=== PATIENT | male | born 1950 | race Caucasian/White ===

== ENCOUNTER 2017-03-21 10:07 | Emergency (ER) | payer OTHER ==
--- NOTE | 2017-03-21 10:14 | EDPHY ---
H & P Time Seen by Provider: 03/21/17 10:08 HPI/ROS: CHIEF COMPLAINT: I blacked out from my knees up HISTORY OF PRESENT ILLNESS: 67-year-old man arrives by EMS saying that he blacked out from the knees up 3 times last night. The patient says his legs get weak and he would fall down. He really denies syncope or and consciousness or any injury to me. REVIEW OF SYSTEMS: Eye: no change in vision ENT: no sore throat Cardiac: no chest pain or syncope Pulmonary: no cough or SOB Abdomen: no vomiting, diarrhea, abdominal pain Musculoskeletal: no back pain Skin: no rash Neuro: no headache Constitutional: no fever : no urinary symptoms A comprehensive 10 point review of systems is otherwise negative aside from elements mentioned in the history of present illness. PAST MEDICAL HISTORY: History and physical dated 07/18/2015 personally reviewed includes COPD, spine surgery, bipolar Social history: Tobacco smoker, no alcohol General Appearance: Alert and conversant, cooperative. Eyes: No scleral icterus. ENT, Mouth: Normal mucous membranes. Respiratory: Normal respiratory effort, breath sounds equal, lungs are clear to auscultation. Cardiovascular: Regular rate and rhythm. Gastrointestinal: Abdomen is soft and non tender. Neurological: Alert and oriented x3. Normally conversant. Face symmetric, normal movement and sensation in all extremities. Skin: Warm and dry, no rashes. Musculoskeletal: No peripheral edema and no joint swelling. Psychiatric: Not agitated. Emergency Department course/MDM: 12-lead EKG interpreted by me; official reading is in trace master. My interpretation is sinus rhythm rate 94 with normal intervals and no ischemic changes. I-STAT labs reviewed. Patient is ambulatory, in further discussion with him he really was just calling EMS because he felt cold being outside. I think it is unlikely that he has stroke or seizure, malignant dysrhythmia, syncope or head injury. Smoking Status: Current every day smoker Constitutional: Initial Vital Signs Temperature (C) 36.8 C 03/21/17 10:11 Heart Rate 103 H 03/21/17 10:11 Respiratory Rate 16 03/21/17 10:11 Blood Pressure 144/88 H 03/21/17 10:11 O2 Sat (%) 93 03/21/17 10:11 O2 Delivery Mode Room Air Allergies/Adverse Reactions: No Known Allergies Allergy (Verified 07/08/15 19:53) Home Medications: Medication Instructions Recorded LORazepam [Ativan (*)] 1 mg PO HS PRN 07/18/15 OXYCODONE HCL 30 mg PO BID PRN 07/18/15 Ipratropium [Atrovent Hfa] 12.9 gm IH QID #1 mdi 07/22/15 levOFLOXACIN [levAQUIN (*)] 750 mg PO DAILY10 #2 tab 07/22/15 oxyCODONE IR [Oxycodone Ir (*)] 10 mg PO Q4 PRN #24 tab 07/22/15 Medical Decision Making - Data Points Laboratory Results: 03/21/17 10:23 POC Hgb 14.6 gm/dL gm/dL (13.7-17.5) POC Hct 43 % % (40-51) POC Sodium 144 mEq/L mEq/L (134-144) POC Potassium 3.9 mEq/L mEq/L (3.3-5.0) POC Chloride 105 mEq/L mEq/L (97-110) POC BUN 27 mg/dL H mg/dL (7-23) POC Creatinine 1.5 mg/dL H mg/dL (0.7-1.3) POC Glucose 95 mg/dL mg/dL (70-100) Point of Care Test Results: 03/21/17 10:23 POC Sodium 144 POC Potassium 3.9 POC Chloride 105 POC BUN 27 H POC Creatinine 1.5 H POC Glucose 95 Departure - Departure Disposition: Home, Routine, Self-Care Clinical Impression: Weakness Condition: Good Instructions: Weakness (ED) Referrals: Patient,NotPresent [Unknown] - As per Instructions [facility],. [Clinic] - As per Instructions
--- NOTE | 2017-03-21 10:39 | CPEKG ---
Heart Rate: 94 RR Interval: 638 P-R Interval: 124 QRSD Interval: 96 QT Interval: 368 QTC Interval: 461 P [place]: 71 QRS [place]: -14 T Wave [place]: 79 EKG Severity - NORMAL ECG - EKG Impression: SINUS RHYTHM Electronically Signed By: Rashard Santo 21-Mar-2017 15:00:57
--- NOTE | 2017-03-21 10:39 | CPEKG ---
Heart Rate: 94 RR Interval: 638 P-R Interval: 124 QRSD Interval: 96 QT Interval: 368 QTC Interval: 461 P [place]: 71 QRS [place]: -14 T Wave [place]: 79 EKG Severity - NORMAL ECG - EKG Impression: SINUS RHYTHM Electronically Signed By: Rashard Santo 21-Mar-2017 15:00:57
[2017-03-21 11:30] VITALS: BP 127/97; PULSE 92; RESP 12; TEMP 97.7; O2SAT 95
== END 2017-03-21 11:50 | disposition home or self-care (01) ==
LOC: EDUNIT#
DX: R53.1 Weakness (principal); J44.9 Chronic obstructive pulmonary disease, unspecified; F17.200 Nicotine dependence, unspecified, uncomplicated
CPT/HCPCS: 82947-QW

== ENCOUNTER 2017-05-15 13:52 | Emergency (ER) | payer OTHER ==
[2017-05-15 14:10] VITALS: RESP 18
--- NOTE | 2017-05-15 14:57 | EDPHY ---
H & P Time Seen by Provider: 05/15/17 14:35 HPI/ROS: Chief complaint. Shortness of breath HPI. Patient is a 67-year-old male presents emergency department with vomiting and diarrhea for 2 days. He is also have increasing shortness of breath and cough and has been out of his albuterol inhaler for 2-3 days. He notes nonproductive cough some tightness. No fever. He attributes his vomiting and diarrhea to bad food. He has had similar symptoms previously ROS Constitutional. no fever/chills, no weakness Eyes. no problems with vision ENT. no sore throat, no nasal drainage Cardiovascular. no chest pain Respiratory. Shortness of breath and cough Abdominal. No abdominal pain but vomiting and diarrhea . no problems urinating MS. no calf pain/swelling, no neck/back pain, no joint pain Skin. no rash Lymph. no swollen glands Neuro. no headache, no dizziness, no difficulty walking or with speech Past Medical/Surgical History: Past medical history COPD, hypertension, chronic neck pain Social History: Single, daily smoker, no alcohol Smoking Status: Current every day smoker Physical Exam: General Appearance: Alert well-developed male mild distress vital signs are stable. Eyes: Pupils equal and round no pallor or injection. ENT, Mouth: Mucous membranes are moist. Respiratory: No retractions but inspiratory expiratory rhonchi Cardiovascular: Regular rate and rhythm. Gastrointestinal: Abdomen is soft and nontender, no masses, bowel sounds normal. Neurological: Awake and alert, sensory and motor exams grossly normal. Skin: Warm and dry, no rashes. Musculoskeletal: Neck is supple nontender. Extremities symmetrical, full range of motion. Psychiatric: Patient is oriented X 3, there is no agitation. Constitutional: Initial Vital Signs Temperature (C) 36.5 C 05/15/17 14:03 Heart Rate 84 05/15/17 14:03 Respiratory Rate 18 05/15/17 14:03 Blood Pressure 132/103 H 05/15/17 14:03 O2 Sat (%) 94 05/15/17 14:03 O2 Delivery Mode Room Air Allergies/Adverse Reactions: No Known Allergies Allergy (Verified 05/15/17 14:02) Home Medications: Medication Instructions Recorded NK [No Known Home Meds] 05/15/17 Medical Decision Making - Diagnostics Imaging Results: Chest x-ray interpreted by me as showing COPD but no evidence for pneumonia Procedures: IV normal saline with initial target 2 L. Her loperamide orally. Zofran IV. DuoNeb updraft. ED Course/Re-evaluation: Re-evaluation at 5:30 p.m. patient is taking oral fluids without nausea or vomiting. After the DuoNeb updraft he has better air movement and decreased rhonchi. Patient and I discussed imaging study results, treatment plan including criteria for return and importance of follow-up and further evaluation. He expresses understanding and agreement Differential Diagnosis: Likely this is a gastroenteritis causing vomiting and diarrhea. There is no evidence for acute abdomen. Patient has a history of COPD and chest x-ray confirms COPD. There is no evidence for pneumonia. - Data Points Medications Given: Discontinued Medications Albuterol/Ipratropium (Duoneb) 3 ml IH EDNOW ONE Stop: 05/15/17 16:08 Last Admin: 05/15/17 16:33 Dose: 3 ml Sodium Chloride (Ns) 1,000 mls @ 0 mls/hr IV ONCE ONE; Wide Open PRN Reason: Protocol Stop: 05/15/17 16:08 Last Admin: 05/15/17 16:31 Dose: 1,000 mls Sodium Chloride (Ns) 1,000 mls @ 0 mls/hr IV EDNOW ONE; Wide Open PRN Reason: Protocol Stop: 05/15/17 16:08 Last Admin: 05/15/17 16:40 Dose: 1,000 mls Loperamide HCl (Imodium) 4 mg PO EDNOW ONE Stop: 05/15/17 16:09 Last Admin: 05/15/17 16:33 Dose: Not Given Methylprednisolone Sodium Succinate (Solu-Medrol) 125 mg IVP EDNOW ONE Stop: 05/15/17 16:08 Last Admin: 05/15/17 16:31 Dose: 125 mg Ondansetron HCl (Zofran) 4 mg IVP EDNOW ONE Stop: 05/15/17 16:08 Last Admin: 05/15/17 16:32 Dose: 4 mg Departure - Departure Disposition: Home, Routine, Self-Care Clinical Impression: COPD exacerbation, Gastroenteritis Condition: Good Instructions: COPD (Chronic Obstructive Pulmonary Disease) (ED) Additional Instructions: Use the inhaler that we have given you using 2 puffs every 4-6 hours for breathing. For nausea and vomiting frequent, small sips fluids with gradual diet advancement. Zofran if needed for nausea and vomiting. Return for worsening symptoms. Recheck in 1-2 days for continuing symptoms Referrals: NONE *PRIMARY CARE P,. [Primary Care Provider] - As per Instructions [facility] [Outside] - 2-3 days, if not improved
[2017-05-15] MEDS ORDERED: IPRATROPIUM/ALBUTEROL 3 ML DEYVIAL IH ONE (16:07)
[2017-05-15] MEDS ORDERED: methylPREDNISolone SOD SUCC 125 MG/2 ML VIAL IVP ONE (16:07)
[2017-05-15] MEDS ORDERED: ONDANSETRON 4 MG/2 ML VIAL IVP ONE (16:07)
[2017-05-15] MEDS ORDERED: NS 1,000 ML IV ONE ×2 (16:07)
[2017-05-15] MEDS ORDERED: LOPERAMIDE HCL 2 MG CAP PO ONE (16:08)
[2017-05-15] MEDS ORDERED: ALBUTEROL INH PREPACK MDI TAKEHOME ONE (17:16)
[2017-05-15] MEDS ORDERED: ONDANSETRON 4MG PREPACK#2 BTL TAKEHOME ONE (17:42)
[2017-05-15 17:43] VITALS: BP 145/90; PULSE 90; TEMP 98.6; O2SAT 97
== END 2017-05-15 17:50 | disposition home or self-care (01) ==
DX: J44.1 Chronic obstructive pulmonary disease with (acute) exacerbation (principal); K52.9 Noninfective gastroenteritis and colitis, unspecified; E86.9 Volume depletion, unspecified; I10 Essential (primary) hypertension; F17.200 Nicotine dependence, unspecified, uncomplicated
CPT/HCPCS: 71010; 96361; 96374; 96375; 99284; J2405; J2930

== ENCOUNTER 2017-06-07 12:26 | Emergency (ER) | payer OTHER ==
[~2017-06-07 12:26] MED LIST: OSELTAMIVIR PHOSPHATE 75 MG CAP PO SCH; predniSONE 20 MG TAB PO SCH
[2017-06-07] MEDS ORDERED: methylPREDNISolone SOD SUCC 125 MG/2 ML VIAL IVP ONE (13:41)
[2017-06-07] MEDS ORDERED: ALBUTEROL 3 ML DEYVIAL ONE (13:41)
[2017-06-07] MEDS ORDERED: IPRATROPIUM/ALBUTEROL 3 ML DEYVIAL IH ONE (13:41)
[2017-06-07] MEDS ORDERED: IPRATROPIUM/ALBUTEROL 3 ML DEYVIAL ONE (13:41)
[2017-06-07] MEDS ORDERED: ALBUTEROL 3 ML DEYVIAL IH ONE ×2 (13:41→15:06)
[2017-06-07 13:46] LABS: PLATELET COUNT 377 10^3/uL (150-400)
--- NOTE | 2017-06-07 13:56 | CPEKG ---
Heart Rate: 78 RR Interval: 769 P-R Interval: 132 QRSD Interval: 98 QT Interval: 388 QTC Interval: 442 P [place]: 75 QRS [place]: 20 T Wave [place]: 74 EKG Severity - NORMAL ECG - EKG Impression: SINUS RHYTHM Electronically Signed By: Nela Diaz 07-Jun-2017 20:00:42
--- NOTE | 2017-06-07 14:11 | EDPHY ---
H & P Stated Complaint: COUGHING, PHLEM YELLOW Time Seen by Provider: 06/07/17 13:18 HPI/ROS: CHIEF COMPLAINT: Cough with yellow phlegm, shortness of breath, out of medications HISTORY OF PRESENT ILLNESS: 67-year-old gentleman with a history of COPD and hypertension, currently homeless, presents complaining of 2 days of shortness of breath, cough productive of a yellowish sputum, and chest tightness. Patient reports that he does not have any his usual medications which include Ventolin, steroid inhaler, Symbicort. Patient denies any fevers. Denies palpitations. No nausea or vomiting or diarrhea. No headache or lightheadedness. REVIEW OF SYSTEMS: Aside from elements discussed in the HPI, a comprehensive 10-point review of systems was reviewed and is negative. PAST MEDICAL HISTORY: COPD, hypertension SOCIAL HISTORY: The patient continues to smoke. VITAL SIGNS Reviewed by me. GENERAL: Well-developed, well-nourished, resting comfortably in no respiratory distress. HEENT: Atraumatic. Eyes: No icterus, no injection. Mouth: moist mucous membranes. No erythema or lesions. Neck: supple with no adenopathy. LUNGS: Coarse breath sounds with wheezes throughout. CARDIAC: Regular rate and rhythm, no rubs, murmurs or gallops. ABDOMEN: Soft, nontender, nondistended, bowel sounds normal. BACK: No CVA tenderness. EXTREMITIES: No trauma. No edema. Range of motion is normal throughout. NEURO: Alert and oriented, grossly nonfocal. SKIN: Warm and dry, no rash. PSYCHIATRIC: Normal mentation, no agitation. - Personal History Current Tetanus Diphtheria and Acellular Pertussis (TDAP): No Tetanus Vaccine Date: < 10 years - Medical/Surgical History Hx Asthma: Yes Hx Chronic Respiratory Disease: Yes Hx Diabetes: No Hx Cardiac Disease: No Hx Renal Disease: No Hx Cirrhosis: No Hx Alcoholism: No Hx HIV/AIDS: No Hx Splenectomy or Spleen Trauma: No Other PMH: Emphysema, hypertension, Chronic neck pain, previous cervical fusion , lumbar fusion, KNEE, HEP B AND C - Social History Smoking Status: Current every day smoker Constitutional: Initial Vital Signs Temperature (C) 36.5 C 06/07/17 12:29 Heart Rate 88 06/07/17 12:29 Respiratory Rate 22 H 06/07/17 12:29 Blood Pressure 150/91 H 06/07/17 12:29 O2 Sat (%) 97 06/07/17 12:29 O2 Delivery Mode Room Air Allergies/Adverse Reactions: No Known Allergies Allergy (Verified 05/15/17 14:02) Home Medications: Medication Instructions Recorded Albuterol Hfa Anes Only [Proair 2 puffs IH QID #1 mdi 06/07/17 Hfa Icu (*)] Budesonide/Formoterol 80/4.5 2 puffs IH BID #1 mdi 06/07/17 [Symbicort 80-4.5 Mcg Inhaler] Oseltamivir Phosphate [Tamiflu 75 75 mg PO BID #10 cap 06/07/17 mg (*)] Oxycodone HCl 06/07/17 predniSONE [prednisone 10mg (RX)] 40 mg PO DAILY 3 Days tab 06/07/17 Medical Decision Making - Diagnostics EKG Interpretation: 12-LEAD EKG: Please see the full report in Trace Master. My interpretation: Sinus rhythm, no ST or T-wave changes Imaging Results: Imaging Impressions Chest X-Ray 06/07/17 13:41 Impression: Hyperexpanded lungs suggesting COPD/emphysema. Imaging: I viewed and interpreted images myself ED Course/Re-evaluation: 67-year-old male with COPD presenting with shortness of breath, yellow cough, and also reports that he is out of his meds. He received a DuoNeb as well as an albuterol neb. He received Solu-Medrol 125 mg in his IV. Evaluation included chest x-ray consistent with bronchitis, no pneumonia. EKG with normal sinus rhythm, negative troponin, normal labs with the exception of positive influenza A. On re-examination patient's wheezes have largely cleared. He does have some residual right-sided wheezes. An additional nebulizer treatment was ordered. Patient's dose of Tamiflu was administered emergency department. Case Management facilitated providing the patient with Tamiflu for the next 5 days, prednisone 40 mg daily for the next 3 days, and meter dose inhaler. Patient will need to follow up with his primary care physician. He understands the significance of an influenza diagnosis in a patient with underlying COPD. He understands importance of rest, fluids, fever control, aggressive use of his meter dose inhaler and follow up as needed. He will return if he is worse. Differential Diagnosis: Differential diagnosis for the patient's cough and shortness breath was considered including but not limited to viral versus bacterial bronchitis, influenza, cardiac causes, COPD, pulmonary emboli, upper respiratory infection, lower respiratory infection, and bronchospasm. - Data Points Laboratory Results: Laboratory Results 06/07/17 13:10 06/07/17 13:10 06/07/17 06/07/17 06/07/17 14:00 13:10 13:10 WBC 9.43 10^3/uL 10^3/uL (3.80-9.50) RBC 4.30 10^6/uL L 10^6/uL (4.40-6.38) Hgb 12.4 g/dL L g/dL (13.7-17.5) Hct 37.9 % L % (40.0-51.0) MCV 88.1 fL fL (81.5-99.8) MCH 28.8 pg pg (27.9-34.1) MCHC 32.7 g/dL g/dL (32.4-36.7) RDW 13.5 % % (11.5-15.2) Plt Count 377 10^3/uL 10^3/uL (150-400) MPV 9.8 fL fL (8.7-11.7) Neut % (Auto) 65.7 % % (39.3-74.2) Lymph % (Auto) 22.0 % % (15.0-45.0) [place] % (Auto) 9.1 % % (4.5-13.0) Eos % (Auto) 2.0 % % (0.6-7.6) Baso % (Auto) 0.6 % % (0.3-1.7) Nucleat RBC Rel Count 0.0 % % (0.0-0.2) Absolute Neuts (auto) 6.19 10^3/uL 10^3/uL (1.70-6.50) Absolute Lymphs (auto) 2.07 10^3/uL 10^3/uL (1.00-3.00) Absolute Monos (auto) 0.86 10^3/uL H 10^3/uL (0.30-0.80) Absolute Eos (auto) 0.19 10^3/uL 10^3/uL (0.03-0.40) Absolute Basos (auto) 0.06 10^3/uL 10^3/uL (0.02-0.10) Absolute Nucleated RBC 0.00 10^3/uL 10^3/uL (0-0.01) Immature Gran % 0.6 % % (0.0-1.1) Immature Gran # 0.06 10^3/uL 10^3/uL (0.00-0.10) Sodium 142 mEq/L mEq/L (135-145) Potassium 4.9 mEq/L mEq/L (3.5-5.2) Chloride 103 mEq/L mEq/L (97-110) Carbon Dioxide 26 mEq/l mEq/l (22-31) Anion Gap 13 mEq/L mEq/L (8-16) BUN 23 mg/dL mg/dL (7-23) Creatinine 0.9 mg/dL mg/dL (0.7-1.3) Estimated GFR > 60 Glucose 103 mg/dL H mg/dL (70-100) Calcium 9.6 mg/dL mg/dL (8.5-10.4) Troponin I < 0.012 ng/mL ng/mL (0.000-0.034) Nasal Influenza A PCR FLU A DETECTED (NEGATIVE) Nasal Influenza B PCR NEGATIVE FOR FLU B (NEGATIVE) Medications Given: Discontinued Medications Albuterol (Proventil Neb) 3 ml IH EDNOW ONE Stop: 06/07/17 13:42 Last Admin: 06/07/17 13:43 Dose: 3 ml Albuterol (Proventil Neb) 3 ml IH EDNOW ONE Stop: 06/07/17 15:07 Last Admin: 06/07/17 15:20 Dose: 3 ml Albuterol/Ipratropium (Duoneb) 3 ml IH EDNOW ONE Stop: 06/07/17 13:42 Last Admin: 06/07/17 13:43 Dose: 3 ml Sodium Chloride (Ns) 1,000 mls @ 0 mls/hr IV ONCE ONE; Wide Open PRN Reason: Protocol Stop: 06/07/17 15:07 Last Admin: 06/07/17 15:20 Dose: 1,000 mls Methylprednisolone Sodium Succinate (Solu-Medrol) 125 mg IVP EDNOW ONE Stop: 06/07/17 13:42 Last Admin: 06/07/17 13:44 Dose: 125 mg Oseltamivir Phosphate (Tamiflu) 75 mg PO EDNOW ONE Stop: 06/07/17 14:50 Last Admin: 06/07/17 14:55 Dose: 75 mg Departure - Departure Disposition: Home, Routine, Self-Care Clinical Impression: Influenza A, Chronic obstructive pulmonary disease with acute exacerbation Condition: Fair Instructions: Albuterol (By breathing), Influenza (ED), COPD (Chronic Obstructive Pulmonary Disease) (ED) Additional Instructions: Most important thing to treat your influenza days to get plenty of rest, drink plenty of fluid, and treat any fever with Tylenol or ibuprofen. You been given a prescription for Tamiflu. Please take this as directed. You been given a meter dose albuterol inhaler. Please use this as needed for shortness of breath. 2-4 puffs every 3-4 hours as needed. Please take the prednisone as directed. Please follow up with primary care physician as soon as possible for further evaluation. Return to the emergency department or seek care urgently if you are not improving or if you're getting significantly worse. Referrals: AUBREY BOBO [Primary Care Provider] - As per Instructions Prescriptions: Albuterol Hfa Anes Only [Proair Hfa Icu (*)] 2 puffs IH QID #1 mdi Budesonide/Formoterol 80/4.5 [Symbicort 80-4.5 Mcg Inhaler] 2 puffs IH BID #1 mdi Oseltamivir Phosphate [Tamiflu 75 mg (*)] 75 mg PO BID #10 cap predniSONE [prednisone 10mg (RX)] 40 mg PO DAILY 3 Days tab
[2017-06-07] MEDS ORDERED: OSELTAMIVIR PHOSPHATE 75 MG CAP PO ONE (14:49)
[2017-06-07] MEDS ORDERED: NS 1,000 ML IV ONE (15:06)
[2017-06-07] MEDS ORDERED: ALBUTEROL INH PREPACK MDI TAKEHOME ONE (15:39)
[2017-06-07 16:20] VITALS: BP 151/82; PULSE 89; RESP 18; TEMP 97.9; O2SAT 98
--- NOTE | 2017-06-07 16:21 | ASMTCMCOM ---
CM Note CM Note Notes: Patient presents to the ER with flu like symptoms/positive for Infuenza A. Patient staes that he is currently homeless and requesting assistance with medications. I have met with patient to provide resources, including to evalauate for medication MAP. Patient reports that he is "recently" homeless, has been staying with a friend, but is looking into getting his TB screeening so he can stay at the half-way. I have confirmed that patient is current with Nick Benitez MD and suggested he follow up with Dr. Benitez re getting this done. He states that he is planning to go to [facility] for this and that he has already looked into it I have called patient's reported pharmacy; [facility] [address] and confirmed that patient recently filled [address] Benitez (kurtz) on May 24: Oxycodone, Lisinopril, and a Z-pack. Pharmacist states that they do not have any prescription insurance information on file. Patient also tells me that he does not have Medicare D. We have "mapped" his Tamiflu and prednisone prescriptions I have provided patient with information regarding the [facility] program and [facility] for the half-way. He is aware that the [facility]-way is NOT open this evening and I encouraged him to stay with his friend amadou if he is able Date Signed: 06/07/2017 04:20 PM Electronically Signed By:Nicolette Terrazas RN
== END 2017-06-07 16:24 | disposition home or self-care (01) ==
DX: J44.1 Chronic obstructive pulmonary disease with (acute) exacerbation (principal); J10.1 Influenza due to other identified influenza virus with other respiratory manifestations; I10 Essential (primary) hypertension; F17.200 Nicotine dependence, unspecified, uncomplicated
CPT/HCPCS: 71046; 93005; 96374; 99285; J2930; J7613; J7512

== ENCOUNTER 2017-07-06 12:32 | Emergency (ER) | payer OTHER ==
[~2017-07-06 12:32] MED LIST changes: -OSELTAMIVIR PHOSPHATE 75 MG CAP PO SCH
[2017-07-06 12:40] VITALS: BP 149/86; PULSE 85; RESP 18; TEMP 97.9
--- NOTE | 2017-07-06 12:45 | CPEKG ---
Heart Rate: 77 RR Interval: 779 P-R Interval: 140 QRSD Interval: 96 QT Interval: 404 QTC Interval: 458 P [place]: 72 QRS [place]: 4 T Wave [place]: 65 EKG Severity - NORMAL ECG - EKG Impression: SINUS RHYTHM Electronically Signed By: Chuck Chau 06-Jul-2017 12:53:53
--- NOTE | 2017-07-06 12:50 | EDPHY ---
H & P Stated Complaint: cough, chest pain Time Seen by Provider: 07/06/17 12:49 HPI/ROS: CHIEF COMPLAINT: Cough, dyspnea HISTORY OF PRESENT ILLNESS: Patient presents to the ED with complaints of cough and dyspnea. The patient does have a history of COPD. He reports he has been using his albuterol frequently. The patient denies any fever, abdominal pain, vomiting or diarrhea. The patient denies any history of fall or trauma. The patient denies asymmetric calf pain or swelling. The patient has no additional complaints. REVIEW OF SYSTEMS: A comprehensive 10 point review of systems is otherwise negative aside from elements mentioned in the history of present illness. Source: Patient - Personal History Current Tetanus/Diphtheria Vaccine: Yes Current Tetanus Diphtheria and Acellular Pertussis (TDAP): Yes Tetanus Vaccine Date: < 10 years - Medical/Surgical History Hx Asthma: Yes Hx Chronic Respiratory Disease: Yes Hx Diabetes: No Hx Cardiac Disease: No Hx Renal Disease: No Hx Cirrhosis: No Hx Alcoholism: No Hx HIV/AIDS: No Hx Splenectomy or Spleen Trauma: No Other PMH: Emphysema, hypertension, Chronic neck pain, previous cervical fusion , lumbar fusion, KNEE, HEP B AND C - Social History Smoking Status: Current every day smoker - Physical Exam Exam: General Appearance: Alert, no distress Eyes: Pupils equal and round no pallor or injection ENT, Mouth: Mucous membranes moist Respiratory: There are no retractions, diminished breath sounds bilaterally, scant wheezing, no tachypnea Cardiovascular: Regular rate and rhythm Gastrointestinal: Abdomen is soft and nontender, no masses, bowel sounds normal Neurological: A&O, normal motor function, normal sensory exam, normal cranial nerves Skin: Warm and dry, no rashes Musculoskeletal: Neck is supple nontender Extremities: symmetrical, full range of motion Constitutional: Initial Vital Signs Temperature (C) 36.6 C 07/06/17 12:38 Heart Rate 85 07/06/17 12:38 Respiratory Rate 18 07/06/17 12:38 Blood Pressure 149/86 H 07/06/17 12:38 O2 Sat (%) 95 07/06/17 12:38 O2 Delivery Mode Room Air Allergies/Adverse Reactions: No Known Allergies Allergy (Verified 05/15/17 14:02) Home Medications: Medication Instructions Recorded Albuterol Hfa Anes Only [Proair 2 puffs IH QID #1 mdi 06/07/17 Hfa Icu (*)] Oxycodone HCl 06/07/17 Lisinopril 07/06/17 predniSONE [prednisone 20mg (RX)] 3 tab PO DAILY #15 tab 07/06/17 Medical Decision Making - Diagnostics EKG Interpretation: EKG: Complete interpretation has been separately recorded in the [employer] archive. Summary impression: Sinus rhythm, rate 77 Imaging Results: Chest x-ray AP: Images reviewed by myself, negative for acute pneumonia, chronic changes are noted consistent with his COPD. ED Course/Re-evaluation: ED course: The patient presents to the ED with dyspnea mild chest pain. His chest x-ray demonstrates no evidence of pneumonia. I reviewed his past medical records including his prior ED visits for COPD exacerbations. His EKG demonstrates no evidence of ischemia. His vital signs are stable. The patient does have a current prescription for his inhalers. He will be given a short course of prednisone. The patient will be advised to return to the emergency department for any worsening symptoms or other concerns. He will follow up with his primary care provider as scheduled. The patient is not hypoxemic. I reexamined him at 2:00 p.m. and he is comfortable being discharged home. She did receive an albuterol updraft in the emergency department. Differential Diagnosis: Differential diagnosis considered includes asthma, bronchitis, pneumonia - Data Points Laboratory Results: Laboratory Results 07/06/17 12:35 07/06/17 12:35 07/06/17 07/06/17 12:35 12:35 WBC 8.63 10^3/uL 10^3/uL (3.80-9.50) RBC 4.33 10^6/uL L 10^6/uL (4.40-6.38) Hgb 12.3 g/dL L g/dL (13.7-17.5) Hct 37.6 % L % (40.0-51.0) MCV 86.8 fL fL (81.5-99.8) MCH 28.4 pg pg (27.9-34.1) MCHC 32.7 g/dL g/dL (32.4-36.7) RDW 14.3 % % (11.5-15.2) Plt Count 326 10^3/uL 10^3/uL (150-400) MPV 9.6 fL fL (8.7-11.7) Neut % (Auto) 57.0 % % (39.3-74.2) Lymph % (Auto) 27.0 % % (15.0-45.0) [place] % (Auto) 9.7 % % (4.5-13.0) Eos % (Auto) 4.6 % % (0.6-7.6) Baso % (Auto) 1.0 % % (0.3-1.7) Nucleat RBC Rel Count 0.0 % % (0.0-0.2) Absolute Neuts (auto) 4.91 10^3/uL 10^3/uL (1.70-6.50) Absolute Lymphs (auto) 2.33 10^3/uL 10^3/uL (1.00-3.00) Absolute Monos (auto) 0.84 10^3/uL H 10^3/uL (0.30-0.80) Absolute Eos (auto) 0.40 10^3/uL 10^3/uL (0.03-0.40) Absolute Basos (auto) 0.09 10^3/uL 10^3/uL (0.02-0.10) Absolute Nucleated RBC 0.00 10^3/uL 10^3/uL (0-0.01) Immature Gran % 0.7 % % (0.0-1.1) Immature Gran # 0.06 10^3/uL 10^3/uL (0.00-0.10) Sodium 140 mEq/L mEq/L (135-145) Potassium 4.5 mEq/L mEq/L (3.5-5.2) Chloride 102 mEq/L mEq/L (97-110) Carbon Dioxide 26 mEq/l mEq/l (22-31) Anion Gap 12 mEq/L mEq/L (8-16) BUN 21 mg/dL mg/dL (7-23) Creatinine 0.8 mg/dL mg/dL (0.7-1.3) Estimated GFR > 60 Glucose 146 mg/dL H mg/dL (70-100) Calcium 9.5 mg/dL mg/dL (8.5-10.4) Troponin I < 0.012 ng/mL ng/mL (0.000-0.034) Departure - Departure Disposition: Home, Routine, Self-Care Clinical Impression: COPD exacerbation Condition: Good Instructions: COPD (Chronic Obstructive Pulmonary Disease) (ED) Additional Instructions: 1. Continue your regular medications as prescribed. 2. Take prednisone as directed for next 5 days. 3. [facility] the week. 4. Please return to the ED for markedly worsening symptoms or other concerns. Referrals: [facility],. [Clinic] - As per Instructions Prescriptions: predniSONE [prednisone 20mg (RX)] 3 tab PO DAILY #15 tab
[2017-07-06 13:21] LABS: PLATELET COUNT 326 10^3/uL (150-400)
[2017-07-06] MEDS ORDERED: predniSONE 20 MG TAB PO ONE (13:50)
[2017-07-06 13:51] VITALS: O2SAT 95
[2017-07-06] MEDS ORDERED: IPRATROPIUM/ALBUTEROL 3 ML DEYVIAL IH ONE (13:52)
--- NOTE | 2017-07-06 14:36 | ASMTCMCOM ---
CM Note CM Note Notes: Met with patient who is known to this CM regarding follow up from last ER visit (see CM note from 06/07/17). Patient tells me that he is now staying with a friend but is not sure how long he will be able to do so. I reminded him of the Coordinated Entry Program and have provided him detailed information. Patient is asking to have his prescription for prednisone filled because he "does not have any money". Patricia (patient advocate-[employer]) has screened patient for Medicaid and he is "over income" for benefits. Patient does have Medicare as well as prescription drug coverage. We have MAPPED his prescription today for Prednisone and I have informed patient that he will need to fill his own prescriptions in the future. His pharmacy is [facility] on [address]. Patient verbalizes understanding. Patient's PCP is Dr. Nick Benitez and I have again LM with Dr. Benitez re care coordination and follow up Date Signed: 07/06/2017 02:35 PM Electronically Signed By:Nicolette Terrazas RN
== END 2017-07-06 14:50 | disposition home or self-care (01) ==
LOC: EDUNIT#
DX: J44.1 Chronic obstructive pulmonary disease with (acute) exacerbation (principal); I10 Essential (primary) hypertension; F17.200 Nicotine dependence, unspecified, uncomplicated
CPT/HCPCS: J7512

== ENCOUNTER 2017-07-23 08:10 | Emergency (ER) | payer OTHER ==
[2017-07-23 08:22] VITALS: TEMP 97.5
[2017-07-23] MEDS ORDERED: ONDANSETRON 4 MG/2 ML VIAL IVP ONE (08:29)
[2017-07-23] MEDS ORDERED: NS 1,000 ML IV ONE (08:29)
--- NOTE | 2017-07-23 08:37 | CPEKG ---
Heart Rate: 82 RR Interval: 732 P-R Interval: 128 QRSD Interval: 100 QT Interval: 388 QTC Interval: 453 P Edna: 72 QRS Edna: 50 T Wave Edna: 71 EKG Severity - NORMAL ECG - EKG Impression: SINUS RHYTHM Electronically Signed By: Chuck Chau 23-Jul-2017 13:56:52
[2017-07-23 09:16] LABS: PLATELET COUNT 317 10^3/uL (150-400)
--- NOTE | 2017-07-23 09:47 | EDPHY ---
H & P Stated Complaint: nausea Time Seen by Provider: 07/23/17 08:20 HPI/ROS: CHIEF COMPLAINT: "I'm nauseous" HISTORY OF PRESENT ILLNESS: 67-year-old male took a taxi to the ER from the senior care complaining of nausea since last night. No abdominal pain. No vomiting. No chest pain or discomfort. No dyspnea. No back or flank pain. No change in urine output. No dizziness. No diaphoresis. REVIEW OF SYSTEMS: A ten point review of systems was performed and is negative with the exception of the items mentioned in the HPI PAST MEDICAL & SURGICAL HISTORY: COPD, hepatitis-B and C, bipolar disorder SOCIAL HISTORY: Homeless, daily smoker PHYSICAL EXAM (Prior to examination, patient consented to physical exam, hands were washed and my usual and customary physical exam procedures followed) 1) GENERAL: Well-developed, well-nourished, alert and oriented. Appears to be in no acute distress. Sleeping, easily woken 2) HEAD: Normocephalic, atraumatic 3) HEENT: Pupils equal, round, reactive to light bilaterally. Sclera anicteric. Nasopharynx, oropharynx, clear, no lesions. Moist mucous membranes Ears bilaterally with normal tympanic membranes. 4) NECK: Full range of motion, no meningeal signs. 5) LUNGS: Clear auscultation bilaterally, no wheezes, no rhonchi, no retractions. 6) HEART: Regular rate and rhythm, no murmur, no heave, no gallop. 7) ABDOMEN: No guarding, no rebound, no focal tenderness, negative McBurney's, negative Villanueva's, negative Rovsing's, negative peritoneal sign, I am unable to elicit any abdominal pain on exam 8) MUSCULOSKELETAL: Moving all extremities, no focal areas of tenderness, no obvious trauma. No peripheral edema or discoloration.Negative Homans no palpable cord 9) BACK: No CVA tenderness, no midline vertebral tenderness, no fluctuance, no step-off, no obvious trauma, no visual or palpable abnormality. 10) SKIN: No rash, no petechiae. 11) Psychiatric: Patient is oriented X 3, there is no agitation. DIFFERENTIAL DIAGNOSIS: In no particular order including but not limited to acute CT, acute pancreatitis, acute gastroenteritis, acute gastritis, aortic dissection - Personal History Current Tetanus/Diphtheria Vaccine: Yes Tetanus Vaccine Date: < 10 years - Medical/Surgical History Hx Asthma: Yes Hx Chronic Respiratory Disease: Yes Hx Diabetes: No Hx Cardiac Disease: No Hx Renal Disease: No Hx Cirrhosis: No Hx Alcoholism: No Hx HIV/AIDS: No Hx Splenectomy or Spleen Trauma: No Other PMH: Emphysema, hypertension, Chronic neck pain, previous cervical fusion , lumbar fusion, KNEE, HEP B AND C - Social History Smoking Status: Current every day smoker Constitutional: Initial Vital Signs Temperature (C) 36.4 C 07/23/17 08:15 Heart Rate 88 07/23/17 08:15 Respiratory Rate 18 07/23/17 08:15 Blood Pressure 143/77 H 07/23/17 08:15 O2 Sat (%) 90 L 07/23/17 08:15 O2 Delivery Mode Room Air Allergies/Adverse Reactions: No Known Allergies Allergy (Verified 07/23/17 08:15) Home Medications: Medication Instructions Recorded Albuterol Hfa Anes Only [Proair 2 puffs IH QID #1 mdi 06/07/17 Hfa Icu (*)] Oxycodone HCl 06/07/17 Lisinopril 07/06/17 predniSONE [prednisone 20mg (RX)] 3 tab PO DAILY #15 tab 07/06/17 Ondansetron Odt [Zofran Odt] 4 mg PO Q4PRN PRN #10 tab 07/23/17 Medical Decision Making - Diagnostics Imaging Results: Imaging Impressions Chest X-Ray 07/23/17 08:28 Impression: COPD with mild bronchitis and moderate size retrocardiac hiatal hernia, but no focal infiltrate. No significant interval change since 07/06/2017. Images reviewed myself ED Course/Re-evaluation: 9:54 a.m.: Patient was re-evaluated with serial examinations. We discussed his normal EKG, his chest x-ray, normal troponin, normal lipase. Doubt CT, doubt acute pancreatitis. I discussed his H&H which are lower verses last documented value. I recommended rectal examination which he declines. He has been informed that GI bleed is not ruled out. I believe him to have decision- making capacity. He has had no complaints of dizziness, abdominal pain, melena hematochezia. He has been given IV Zofran and I re-evaluated him at this time he states that he is feeling improvement, he has been observed tolerating oral intake. He has been given IV hydration. At this time I do not think that further diagnostic studies or hospitalization is indicated. He feels comfortable being discharged with a prescription for Zofran. Patient is asking for food stating that he is hungry. Recommend smoking cessation. Care of patient under supervision of primary Supervising physician Dr Chau. - Data Points Laboratory Results: Laboratory Results 07/23/17 08:55 07/23/17 08:55 07/23/17 07/23/17 08:55 08:55 WBC 12.72 10^3/uL H 10^3/uL (3.80-9.50) RBC 3.46 10^6/uL L 10^6/uL (4.40-6.38) Hgb 9.4 g/dL L g/dL (13.7-17.5) Hct 30.3 % L % (40.0-51.0) MCV 87.6 fL fL (81.5-99.8) MCH 27.2 pg L pg (27.9-34.1) MCHC 31.0 g/dL L g/dL (32.4-36.7) RDW 14.3 % % (11.5-15.2) Plt Count 317 10^3/uL 10^3/uL (150-400) MPV 9.7 fL fL (8.7-11.7) Neut % (Auto) 68.4 % % (39.3-74.2) Lymph % (Auto) 16.3 % % (15.0-45.0) [place] % (Auto) 9.7 % % (4.5-13.0) Eos % (Auto) 4.4 % % (0.6-7.6) Baso % (Auto) 0.6 % % (0.3-1.7) Nucleat RBC Rel Count 0.0 % % (0.0-0.2) Absolute Neuts (auto) 8.71 10^3/uL H 10^3/uL (1.70-6.50) Absolute Lymphs (auto) 2.07 10^3/uL 10^3/uL (1.00-3.00) Absolute Monos (auto) 1.23 10^3/uL H 10^3/uL (0.30-0.80) Absolute Eos (auto) 0.56 10^3/uL H 10^3/uL (0.03-0.40) Absolute Basos (auto) 0.07 10^3/uL 10^3/uL (0.02-0.10) Absolute Nucleated RBC 0.00 10^3/uL 10^3/uL (0-0.01) Immature Gran % 0.6 % % (0.0-1.1) Immature Gran # 0.08 10^3/uL 10^3/uL (0.00-0.10) Sodium 144 mEq/L mEq/L (135-145) Potassium 4.6 mEq/L mEq/L (3.5-5.2) Chloride 111 mEq/L H mEq/L (97-110) Carbon Dioxide 19 mEq/l L mEq/l (22-31) Anion Gap 14 mEq/L mEq/L (8-16) BUN 57 mg/dL H mg/dL (7-23) Creatinine 1.0 mg/dL mg/dL (0.7-1.3) Estimated GFR > 60 Glucose 91 mg/dL mg/dL (70-100) Calcium 9.0 mg/dL mg/dL (8.5-10.4) Total Bilirubin 0.2 mg/dL mg/dL (0.1-1.4) Conjugated Bilirubin 0.2 mg/dL mg/dL (0.0-0.5) Unconjugated Bilirubin 0.0 mg/dL mg/dL (0.0-1.1) AST 34 IU/L IU/L (17-59) ALT 38 IU/L IU/L (21-72) Alkaline Phosphatase 92 IU/L IU/L (38-126) Troponin I < 0.012 ng/mL ng/mL (0.000-0.034) Total Protein 7.3 g/dL g/dL (6.3-8.2) Albumin 4.2 g/dL g/dL (3.5-5.0) Lipase 71 IU/L IU/L (23-300) Medications Given: Discontinued Medications Sodium Chloride (Ns) 1,000 mls @ 0 mls/hr IV ONCE ONE PRN Reason: Wide Open Stop: 07/23/17 08:30 Last Admin: 07/23/17 08:53 Dose: 1,000 mls Ondansetron HCl (Zofran) 4 mg IVP EDNOW ONE Stop: 07/23/17 08:30 Last Admin: 07/23/17 08:53 Dose: 4 mg Departure - Departure Disposition: Home, Routine, Self-Care Clinical Impression: Nausea Condition: Good Instructions: Acute Nausea and Vomiting (ED) Additional Instructions: Seek medical attention if you develop chest pain, shortness of breath, or any other symptoms that concern you. Referrals: AUBREY BOBO [Primary Care Provider] - 1-2 days without fail Prescriptions: Ondansetron Odt [Zofran Odt] 4 mg PO Q4PRN PRN #10 tab PRN Reason: Nausea
[2017-07-23 10:12] VITALS: BP 115/76; PULSE 85; RESP 16; O2SAT 94
== END 2017-07-23 10:12 | disposition home or self-care (01) ==
DX: R11.0 Nausea (principal); J44.9 Chronic obstructive pulmonary disease, unspecified; F17.200 Nicotine dependence, unspecified, uncomplicated; I10 Essential (primary) hypertension
CPT/HCPCS: 71046; 93005; 96361; 96374; 99285; J2405

== ENCOUNTER 2017-07-25 10:20 | Emergency (ER) | payer OTHER ==
--- NOTE | 2017-07-25 10:27 | EDPHY ---
H & P Time Seen by Provider: 07/25/17 10:27 HPI/ROS: CHIEF COMPLAINT: Chest pressure HISTORY OF PRESENT ILLNESS: The patient presents the ED with a 1 day history of vague chest pressure. The patient reports he has history of chronic neck and back pain. He recently was told by his primary care provider that he can no longer receive chronic narcotics through their practice. The patient denies prior history of coronary artery disease. The patient does smoke. He has a history of COPD. Patient denies pleuritic chest pain. He denies asymmetric calf pain or swelling. The patient denies additional acute complaints. The patient reports no recent workup by a head turning machine operator for chest pain. He has no history of exertional chest pain or shortness of breath. The patient reports he currently is taking no medications. The patient is currently homeless. REVIEW OF SYSTEMS: A comprehensive 10 point review of systems is otherwise negative aside from elements mentioned in the history of present illness. Source: Patient - Personal History Tetanus Vaccine Date: < 10 years - Medical/Surgical History Hx Asthma: Yes Hx Chronic Respiratory Disease: Yes Hx Diabetes: No Hx Cardiac Disease: No Hx Renal Disease: No Hx Cirrhosis: No Hx Alcoholism: No Hx HIV/AIDS: No Hx Splenectomy or Spleen Trauma: No Other PMH: Emphysema, hypertension, Chronic neck pain, previous cervical fusion , lumbar fusion, KNEE, HEP B AND C - Social History Smoking Status: Current every day smoker - Physical Exam Exam: General Appearance: Alert, no distress Eyes: Pupils equal and round no pallor or injection ENT, Mouth: Mucous membranes moist Respiratory: There are no retractions, lungs are clear to auscultation Cardiovascular: Regular rate and rhythm Gastrointestinal: Abdomen is soft and nontender, no masses, bowel sounds normal Neurological: A&O, normal motor function, normal sensory exam, normal cranial nerves Skin: Warm and dry, no rashes Musculoskeletal: Neck is supple nontender Extremities: symmetrical, full range of motion Constitutional: Initial Vital Signs Temperature (C) 36.9 C 07/25/17 10:28 Heart Rate 80 07/25/17 10:28 Respiratory Rate 16 07/25/17 10:28 Blood Pressure 136/69 H 07/25/17 10:28 O2 Sat (%) 92 07/25/17 10:28 O2 Delivery Mode Room Air Allergies/Adverse Reactions: No Known Allergies Allergy (Verified 07/23/17 08:15) Home Medications: Medication Instructions Recorded Albuterol Hfa Anes Only [Proair 2 puffs IH QID #1 mdi 06/07/17 Hfa Icu (*)] Oxycodone HCl 06/07/17 Lisinopril 07/06/17 predniSONE [prednisone 20mg (RX)] 3 tab PO DAILY #15 tab 07/06/17 Ondansetron Odt [Zofran Odt] 4 mg PO Q4PRN PRN #10 tab 07/23/17 Medical Decision Making - Diagnostics EKG Interpretation: EKG: Complete interpretation has been separately recorded in the [employer] archive. Summary impression: Sinus rhythm, rate 76, no ischemic changes noted ED Course/Re-evaluation: The patient presents to the ED for evaluation of chest pain for the past day. The patient denies any history of exertional chest pain or shortness of breath. His EKG demonstrates no evidence of ischemia. The patient's troponin is normal. The patient was offered chest x-ray and declined that. The patient does have a history of recently losing access to narcotic medications for chronic pain and may be experiencing some mild symptoms of withdrawal. He has not been on narcotic medications for several days and has no vital sign abnormalities or evidence of autonomic dysfunction. The patient has been informed that we cannot fully exclude the diagnosis of coronary artery disease. The patient has been advised to follow up with our on- call head turning machine operator for consideration of a treadmill stress test an additional risk stratification. Differential Diagnosis: Differential diagnosis considered includes costochondritis, pericarditis, myocardial infarction, esophageal spasm, pleurisy - Data Points Laboratory Results: Laboratory Results 07/25/17 10:55 07/25/17 10:55 07/25/17 07/25/17 10:55 10:55 WBC 18.14 10^3/uL H 10^3/uL (3.80-9.50) RBC 2.82 10^6/uL L 10^6/uL (4.40-6.38) Hgb 7.7 g/dL L g/dL (13.7-17.5) Hct 25.1 % L % (40.0-51.0) MCV 89.0 fL fL (81.5-99.8) MCH 27.3 pg L pg (27.9-34.1) MCHC 30.7 g/dL L g/dL (32.4-36.7) RDW 14.6 % % (11.5-15.2) Plt Count 286 10^3/uL 10^3/uL (150-400) MPV 9.7 fL fL (8.7-11.7) Neut % (Auto) 80.6 % H % (39.3-74.2) Lymph % (Auto) 8.2 % L % (15.0-45.0) [place] % (Auto) 10.0 % % (4.5-13.0) Eos % (Auto) 0.2 % L % (0.6-7.6) Baso % (Auto) 0.3 % % (0.3-1.7) Nucleat RBC Rel Count 0.0 % % (0.0-0.2) Absolute Neuts (auto) 14.62 10^3/uL H 10^3/uL (1.70-6.50) Absolute Lymphs (auto) 1.49 10^3/uL 10^3/uL (1.00-3.00) Absolute Monos (auto) 1.82 10^3/uL H 10^3/uL (0.30-0.80) Absolute Eos (auto) 0.03 10^3/uL 10^3/uL (0.03-0.40) Absolute Basos (auto) 0.05 10^3/uL 10^3/uL (0.02-0.10) Absolute Nucleated RBC 0.00 10^3/uL 10^3/uL (0-0.01) Immature Gran % 0.7 % % (0.0-1.1) Immature Gran # 0.13 10^3/uL H 10^3/uL (0.00-0.10) Sodium 141 mEq/L mEq/L (135-145) Potassium 4.2 mEq/L mEq/L (3.5-5.2) Chloride 104 mEq/L mEq/L (97-110) Carbon Dioxide 27 mEq/l D mEq/l (22-31) Anion Gap 10 mEq/L mEq/L (8-16) BUN 23 mg/dL mg/dL (7-23) Creatinine 0.8 mg/dL mg/dL (0.7-1.3) Estimated GFR > 60 Glucose 124 mg/dL H mg/dL (70-100) Calcium 8.4 mg/dL L mg/dL (8.5-10.4) Troponin I < 0.012 ng/mL ng/mL (0.000-0.034) Departure - Departure Disposition: Home, Routine, Self-Care Clinical Impression: Chest pain Condition: Good Instructions: Chest Pain (ED) Additional Instructions: 1. Based upon the testing done in the Emergency Department today we see no evidence of a heart attack. 2. We are unable to fully exclude coronary artery disease based upon the testing available in the Emergency Department. 3. For this reason, we would like you to be seen by cardiology for consideration of additional testing within the next 3 days. 4. Please contact the head turning machine operator you have been referred to schedule this appointment as soon as possible. Their offices are typically open from 8:30am- 5pm M-F. 5. Please return to the Emergency Department immediately for any recurrent chest pain, difficulty breathing or other concerns. Referrals: Jae Mansfield MD [Medical Doctor] - As per Instructions
[2017-07-25 10:33] VITALS: RESP 16
--- NOTE | 2017-07-25 10:33 | CPEKG ---
Heart Rate: 76 RR Interval: 789 P-R Interval: 128 QRSD Interval: 112 QT Interval: 388 QTC Interval: 437 P [place]: 69 QRS [place]: 32 T Wave [place]: 68 EKG Severity - ABNORMAL ECG - EKG Impression: SINUS RHYTHM EKG Impression: NONSPECIFIC INTRAVENTRICULAR CONDUCTION DELAY Electronically Signed By: Chuck Chau 25-Jul-2017 11:10:54
[2017-07-25 11:13] LABS: PLATELET COUNT 286 10^3/uL (150-400)
[2017-07-25 12:55] VITALS: BP 125/77; PULSE 88; TEMP 98.2; O2SAT 98
== END 2017-07-25 12:54 | disposition home or self-care (01) ==
LOC: EDUNIT#
DX: R07.9 Chest pain, unspecified (principal); I10 Essential (primary) hypertension; J45.909 Unspecified asthma, uncomplicated; F17.200 Nicotine dependence, unspecified, uncomplicated

== ENCOUNTER 2017-07-29 10:11 | Emergency (ER) | payer OTHER ==
[2017-07-29 10:22] VITALS: TEMP 98.4; O2SAT 96
--- NOTE | 2017-07-29 10:27 | EDPHY ---
H & P Stated Complaint: SOB Time Seen by Provider: 07/29/17 10:13 HPI/ROS: CHIEF COMPLAINT: Dyspnea HISTORY OF PRESENT ILLNESS: The patient presents emergency department with complaints of dyspnea. He has a frequent visit in the emergency department for complaints surrounding nausea, chest pain shortness of breath. The patient has a history of chronic narcotic dependence and recently stopped getting regular narcotic medications through his primary care provider. The patient is also homeless. He has a history of COPD and emphysema. He reports that he has not used his inhaler in several days. He denies recent prednisone usage. The patient denies fever or productive cough. REVIEW OF SYSTEMS: A comprehensive 10 point review of systems is otherwise negative aside from elements mentioned in the history of present illness. Source: Patient Exam Limitations: No limitations - Personal History Current Tetanus Diphtheria and Acellular Pertussis (TDAP): Yes Tetanus Vaccine Date: < 10 years - Medical/Surgical History Hx Asthma: Yes Hx Chronic Respiratory Disease: Yes Hx Diabetes: No Hx Cardiac Disease: No Hx Renal Disease: No Hx Cirrhosis: No Hx Alcoholism: No Hx HIV/AIDS: No Hx Splenectomy or Spleen Trauma: No Other PMH: Emphysema, hypertension, Chronic neck pain, previous cervical fusion , lumbar fusion, KNEE, HEP B AND C - Social History Smoking Status: Current every day smoker - Physical Exam Exam: General Appearance: Alert, no distress Eyes: Pupils equal and round no pallor or injection ENT, Mouth: Mucous membranes moist Respiratory: Expiratory wheezing noted, mild tachypnea Cardiovascular: Regular rate and rhythm Gastrointestinal: Abdomen is soft and nontender, no masses, bowel sounds normal Neurological: A&O, normal motor function, normal sensory exam, normal cranial nerves Skin: Warm and dry, no rashes Musculoskeletal: Neck is supple nontender Extremities: symmetrical, full range of motion Constitutional: Initial Vital Signs Temperature (C) 36.9 C 07/29/17 10:21 Heart Rate 70 07/29/17 10:21 Respiratory Rate 18 07/29/17 10:21 Blood Pressure 113/60 07/29/17 10:21 O2 Sat (%) 96 07/29/17 10:21 O2 Delivery Mode Room Air Allergies/Adverse Reactions: No Known Allergies Allergy (Verified 07/23/17 08:15) Home Medications: Medication Instructions Recorded Albuterol Hfa Anes Only [Proair 2 puffs IH QID #1 mdi 06/07/17 Hfa Icu (*)] Qvar 07/29/17 predniSONE [prednisone 20mg (RX)] 3 tab PO DAILY #15 tab 07/29/17 Medical Decision Making ED Course/Re-evaluation: The patient presents to the ED with dyspnea secondary to a mild COPD exacerbation. He was slightly tachypneic however not hypoxic or tachycardic. Patient did receive 60 mg of prednisone and an albuterol/Atrovent breathing treatment. Patient was re-evaluated at 1:00 p.m. and is currently feeling better. He will be discharged home with a 5 day course of prednisone. He is given an albuterol inhaler. He is advised to follow up with his regular physician. Differential Diagnosis: Differential diagnosis considered includes arrhythmia, COPD exacerbation, asthma , pneumonia - Data Points Medications Given: Discontinued Medications Albuterol/Ipratropium (Duoneb) 3 ml IH EDNOW ONE Stop: 07/29/17 10:47 Last Admin: 07/29/17 11:05 Dose: 3 ml Prednisone (Prednisone) 60 mg PO EDNOW ONE Stop: 07/29/17 10:47 Last Admin: 07/29/17 11:05 Dose: 60 mg Departure - Departure Disposition: Home, Routine, Self-Care Clinical Impression: Chronic obstructive pulmonary disease with acute exacerbation Condition: Good Instructions: COPD (Chronic Obstructive Pulmonary Disease) (ED) Additional Instructions: 1. Please take prednisone as directed for next 5 days. 2. Albuterol inhaler as needed for cough and shortness of breath. 3. Please follow up with your primary care provider for a recheck as needed within the week. 4. Return to the ED for markedly worsening symptoms or other concerns.
[2017-07-29] MEDS ORDERED: IPRATROPIUM/ALBUTEROL 3 ML DEYVIAL IH ONE (10:46)
[2017-07-29] MEDS ORDERED: predniSONE 20 MG TAB PO ONE (10:46)
[2017-07-29] MEDS ORDERED: ALBUTEROL INH PREPACK MDI TAKEHOME ONE (12:48)
[2017-07-29 13:00] VITALS: BP 112/65; PULSE 91; RESP 18
== END 2017-07-29 13:00 | disposition home or self-care (01) ==
LOC: EDUNIT#
DX: J44.1 Chronic obstructive pulmonary disease with (acute) exacerbation (principal); I10 Essential (primary) hypertension; F17.200 Nicotine dependence, unspecified, uncomplicated
CPT/HCPCS: 99284; J7512

== ENCOUNTER 2017-07-30 20:38 | Emergency (ER) | payer OTHER ==
[2017-07-30 20:44] VITALS: TEMP 98.2
--- NOTE | 2017-07-30 20:59 | CPEKG ---
Heart Rate: 93 RR Interval: 645 P-R Interval: 140 QRSD Interval: 100 QT Interval: 364 QTC Interval: 453 P [place]: 78 QRS [place]: 22 T Wave [place]: 64 EKG Severity - NORMAL ECG - EKG Impression: SINUS RHYTHM Electronically Signed By: Farideh Engel 31-Jul-2017 06:21:58
[2017-07-30] MEDS ORDERED: IPRATROPIUM/ALBUTEROL 3 ML DEYVIAL IH ONE (21:10)
[2017-07-30 21:18] VITALS: RESP 16
[2017-07-30] MEDS ORDERED: predniSONE 20 MG TAB PO ONE (22:04)
[2017-07-30] MEDS ORDERED: ALBUTEROL INH PREPACK MDI TAKEHOME ONE (22:04)
--- NOTE | 2017-07-30 22:06 | EDPHY ---
H & P Time Seen by Provider: 07/30/17 21:08 HPI/ROS: HPI Shortness of breath. History of COPD. 67-year-old male on foot. This patient is currently homeless. He has a history of frequent visits the emergency department for shortness of breath secondary to his COPD. He was just seen in the emergency department recently on July 25 and then again on July 29 with the same complaint. He was treated yesterday in the emergency department with albuterol nebulizers and prescribed prednisone. He returns to the emergency department tonight stating that he is feeling short of breath again. He admits to not filling his prescription for prednisone which she was given yesterday. No chest pain. No fever. No cough. No other complaints. ROS: Constitutional: No fever, no chills. No weakness. Eyes: No discharge. No changes in vision. ENT: No sore throat. No nasal congestion or rhinorrhea. Respiratory: No cough. As above. Cardiac: No chest pain, no palpitations. Gastrointestinal: No abdominal pain, no vomiting, no diarrhea. Genitourinary: No hematuria. No dysuria or increased frequency with urination. Musculoskeletal: No back pain. No neck pain. No myalgias or arthralgias. Skin: No rashes. Neurological: No headache. No focal weakness or altered sensation. Past medical history: COPD, chronic neck pain, hypertension, hepatitis-B and C , previous lumbar and cervical fusion surgeries. Social history: Homeless. No alcohol. Denies smoking currently. Previous history of smoking. Physical Exam: General Appearance: Alert, no distress. This patient is responding to questions appropriately and in full sentences. This patient appears well- hydrated and well-nourished. Eyes: Pupils equal and round no pallor or injection. No lid edema, erythema or injection. Respiratory: There are no retractions, lungs are clear to auscultation with moderate to good air movement bilaterally. No tachypnea. Cardiovascular: Regular rate and rhythm. No murmur. Gastrointestinal: Abdomen is soft and nontender, no masses, bowel sounds normal. No focal tenderness at McBurney's point. No Villanueva sign. Neurological: Motor sensory function is grossly intact. Cranial nerves are normal. Gait is normal. Skin: Warm and dry, no rashes. Musculoskeletal: Neck is supple and nontender. Extremities are symmetrical. All joints range without pain or impingement. Psychiatric: No agitation. No depression. Database: EKG: Imaging: Procedures: Emergency department course: Vital signs reviewed. He is afebrile. He is 93-94% on room air currently. Vital signs otherwise unremarkable. He was given an albuterol/Atrovent nebulizer treatment x2. He was given 80 mg of oral prednisone. 10:10 p.m., patient re-evaluated. Resting comfortably at this time. He states that he feels much better. Room air pulse oximetry currently 94%. I explained to him that I would fill a prescription for prednisone through our pharmacy assistance program. This will be 60 mg to be taken daily for the next 3 days. He feels comfortable going home at this time. I will also provide him with a take-home albuterol meter dose inhaler. I discussed follow-up with his primary care physician [facility]. Return to emergency department precautions reviewed. All of his questions were answered. He was discharged in good condition. Differential Diagnosis: The differential diagnosis on this patient includes but is not limited to COPD exacerbation. Congestive heart failure exacerbation, acute coronary syndrome, pneumonia unlikely. This represents a partial list of diagnoses considered. These considerations are based on history, physical exam, past history, reassessment and diagnostic testing. Smoking Status: Current every day smoker Constitutional: Initial Vital Signs Temperature (C) 36.8 C 07/30/17 20:40 Heart Rate 87 07/30/17 20:40 Respiratory Rate 20 07/30/17 20:40 Blood Pressure 133/68 H 07/30/17 20:40 O2 Sat (%) 93 07/30/17 20:40 O2 Delivery Mode Room Air O2 (L/minute) 8 Allergies/Adverse Reactions: No Known Allergies Allergy (Verified 07/30/17 20:39) Home Medications: Medication Instructions Recorded Albuterol Hfa Anes Only [Proair 2 puffs IH QID #1 mdi 06/07/17 Hfa Icu (*)] Qvar 07/29/17 predniSONE [prednisone 20mg (RX)] 3 tab PO DAILY #15 tab 07/29/17 predniSONE [prednisone 20mg (RX)] 60 mg PO DAILY #9 tab 07/30/17 Medical Decision Making - Data Points Medications Given: Discontinued Medications Albuterol/Ipratropium (Duoneb) 6 ml IH EDNOW ONE Stop: 07/30/17 21:11 Last Admin: 07/30/17 21:16 Dose: 6 ml Departure - Departure Disposition: Home, Routine, Self-Care Clinical Impression: Chronic obstructive pulmonary disease with acute exacerbation Condition: Good Instructions: COPD (Chronic Obstructive Pulmonary Disease) (ED) Additional Instructions: Read and follow provided instructions. Follow-up with your primary care physician at [facility] tomorrow for re- evaluation as discussed. Take medication as prescribed. Prednisone is to be taken at 60 mg daily for the next 3 days. Albuterol meter dose inhaler: 1-2 puffs every 2-4 hours as needed for shortness of breath. Return to the emergency department for worsening shortness of breath or other serious concerns. Referrals: NONE *PRIMARY CARE P,. [Primary Care Provider] - As per Instructions Prescriptions: predniSONE [prednisone 20mg (RX)] 60 mg PO DAILY #9 tab
[2017-07-30 22:34] VITALS: BP 121/79; PULSE 94; O2SAT 92
== END 2017-07-30 22:34 | disposition home or self-care (01) ==
DX: J44.1 Chronic obstructive pulmonary disease with (acute) exacerbation (principal); I10 Essential (primary) hypertension; F17.200 Nicotine dependence, unspecified, uncomplicated
CPT/HCPCS: 93005; 99283; J7512

== ENCOUNTER 2017-08-01 08:52 | Inpatient (IN) | payer OTHER ==
--- NOTE | 2017-08-01 09:01 | CPEKG ---
Heart Rate: 75 RR Interval: 800 P-R Interval: 120 QRSD Interval: 100 QT Interval: 376 QTC Interval: 420 P [place]: 64 QRS [place]: 44 T Wave [place]: 52 EKG Severity - NORMAL ECG - EKG Impression: SINUS RHYTHM Electronically Signed By: Leon Trevino 01-Aug-2017 13:51:09
[2017-08-01 09:34] LABS: PLATELET COUNT 370 10^3/uL (150-400)
--- NOTE | 2017-08-01 10:14 | EDPHY ---
H & P Stated Complaint: cp Time Seen by Provider: 08/01/17 09:24 - Personal History Current Tetanus/Diphtheria Vaccine: Unsure Current Tetanus Diphtheria and Acellular Pertussis (TDAP): Unsure Tetanus Vaccine Date: < 10 years - Medical/Surgical History Hx Asthma: Yes Hx Chronic Respiratory Disease: Yes Hx Diabetes: No Hx Cardiac Disease: No Hx Renal Disease: No Hx Cirrhosis: No Hx Alcoholism: No Hx HIV/AIDS: No Hx Splenectomy or Spleen Trauma: No Other PMH: Emphysema, hypertension, Chronic neck pain, previous cervical fusion , lumbar fusion, KNEE, HEP B AND C - Social History Smoking Status: Heavy smoker Constitutional: Initial Vital Signs Temperature (C) 36.6 C 08/01/17 08:52 Heart Rate 77 08/01/17 08:52 Respiratory Rate 20 08/01/17 08:52 Blood Pressure 99/62 L 08/01/17 08:52 O2 Sat (%) 99 08/01/17 08:52 O2 Delivery Mode Room Air Allergies/Adverse Reactions: No Known Allergies Allergy (Verified 08/01/17 09:15) Home Medications: Medication Instructions Recorded Acetaminophen [Tylenol 325mg (*)] 325 mg PO DAILY PRN 08/01/17 Albuterol [Proventil Inhaler HFA 1 - 2 puffs IH Q4H PRN 08/01/17 (*)] predniSONE [prednisone 20mg (RX)] 20 tab PO TID 08/01/17 Medical Decision Making - Diagnostics Imaging Results: Imaging Impressions Chest X-Ray 08/01/17 10:05 Impression: Nothing acute identified. Might the patients symptoms be related to reflux? Imaging: I viewed and interpreted images myself ED Course/Re-evaluation: CHIEF COMPLAINT: Chest pain, dyspnea HISTORY OF PRESENT ILLNESS: The patient is a homeless 67 y/o male complaining of recurrent chest pain and dyspnea for the last few days. His medical history includes COPD, hypertension, chronic pain, pneumonia, and bipolar disorder. He was recently admitted 07/19/15 for COPD with acute exacerbation and pneumonia after presenting with similar symptoms to today. He has a productive cough and dyspnea with intermittent anterior chest pain and chills. He denies vomiting, diarrhea, abdominal pain, hematemesis, blood in stool. REVIEW OF SYSTEMS: A 10 point review of systems was performed and is negative with the exception of the elements mentioned in the history of present illness. PHYSICAL EXAM: HR, BP 99/62, O2 Sat, RR. Temp noted General Appearance: Alert, well hydrated, appropriate, and non-toxic appearing. Head: Atraumatic without scalp tenderness or obvious injury Eyes: Pupils equal, round, reactive to light and accommodation, EOMI, no trauma , no injection. Ears: Clear bilaterally, no perforation, normal landmarks Nose: Atraumatic, no rhinorrhea, clear. Throat: There is no erythema or exudates, no lesions, normal tonsils, mucus membranes moist. Neck: Supple, non-tender, no lymphadenopathy. Respiratory: No retractions, no distress, no wheezes, and no accessory muscle use. Lungs have mild scattered rhonchi to auscultation bilaterally. Cardiovascular: Regular rate and rhythm, no murmurs, rubs, or gallops. Good capillary refill all extremities. Gastrointestinal: Abdomen is soft, non-tender, non-distended, no masses, no rebound, no guarding, no peritoneal signs. Musculoskeletal: Normal active ROM of all extremities, atraumatic. Neurological: Alert, appropriate, and interactive. The patient has non-focal cranial nerves, motor, sensory, and cerebellar exam. Skin: No rashes, good turgor, no nodules on palpation. PAST MEDICAL HISTORY: COPD, emphysema, hypertension, chronic neck pain with continuous narcotic use and dependency, hepatitis B and C, bipolar disorder PAST SURGICAL HISTORY: cervical fusion, lumbar fusion SOCIAL HISTORY: Smoker. Homeless, stays at detention on cold nights. Prior medical history reviewed including admission 07/18/15 for cough. DIAGNOSTICS/PROCEDURES/CRITICAL CARE TIME: Chest x-ray: nothing acute The 12 lead EKG was interpreted by myself. Sinus mechanism rate 75. See hard copy and/or "tracemaster" electronic copy for interpretation. DIFFERENTIAL DIAGNOSIS: The differential diagnosis for the patient's shortness of breath and hypoxemia included but was not limited to pneumonia, myocardial infarction, acute mountain sickness, high altitude pulmonary edema, congestive heart failure, and pulmonary embolus. MEDICAL DECISION MAKING: This is a homeless 67 y/o male with COPD and recent admission with pneumonia who returns with a few-day history of dyspnea, cough, and intermittent chest pain and chills. He has mild scattered rhonchi on auscultation. No hypoxemia, fever, tachycardia, or tachypnea. He does not meet sepsis criteria at this time. Plan for IV, labs, chest x-ray, EKG. EKG unremarkable. Labs show BNP of 2470 creatinine 1.4, Hct 21.4, and WBC 16.59. Patient will require admission for CHF, renal insufficiency, anemia, and leukocytosis. Two units of blood ordered for transfusion. Spoke with hospitalist service. Dr. Davis accepts admission. - Data Points Laboratory Results: Laboratory Results 08/01/17 09:11 08/01/17 09:11 08/01/17 08/01/17 08/01/17 09:11 09:11 09:11 WBC 16.59 10^3/uL H 10^3/uL (3.80-9.50) RBC 2.59 10^6/uL L 10^6/uL (4.40-6.38) Hgb 6.8 g/dL L g/dL (13.7-17.5) Hct 21.4 % L % (40.0-51.0) MCV 82.6 fL fL (81.5-99.8) MCH 26.3 pg L pg (27.9-34.1) MCHC 31.8 g/dL L g/dL (32.4-36.7) RDW 16.3 % H % (11.5-15.2) Plt Count 370 10^3/uL 10^3/uL (150-400) MPV 9.6 fL fL (8.7-11.7) Neut % (Auto) 90.6 % H % (39.3-74.2) Lymph % (Auto) 2.5 % L % (15.0-45.0) [place] % (Auto) 5.4 % % (4.5-13.0) Eos % (Auto) 0.0 % L % (0.6-7.6) Baso % (Auto) 0.1 % L % (0.3-1.7) Nucleat RBC Rel Count 0.2 % % (0.0-0.2) Absolute Neuts (auto) 15.04 10^3/uL H 10^3/uL (1.70-6.50) Absolute Lymphs (auto) 0.41 10^3/uL L 10^3/uL (1.00-3.00) Absolute Monos (auto) 0.89 10^3/uL H 10^3/uL (0.30-0.80) Absolute Eos (auto) 0.00 10^3/uL L 10^3/uL (0.03-0.40) Absolute Basos (auto) 0.01 10^3/uL L 10^3/uL (0.02-0.10) Absolute Nucleated RBC 0.04 10^3/uL H 10^3/uL (0-0.01) Immature Gran % 1.4 % H % (0.0-1.1) Immature Gran # 0.24 10^3/uL H 10^3/uL (0.00-0.10) Platelet Estimate INCREASED H (ADEQ) Polychromasia 1+ H Hypochromasia 3+ H Microcytic Cells 1+ H Smear Review By Pending D-Dimer 1.22 ug/mLFEU H ug/mLFEU (0.00-0.50) Sodium 143 mEq/L mEq/L (135-145) Potassium 4.6 mEq/L mEq/L (3.5-5.2) Chloride 106 mEq/L mEq/L (97-110) Carbon Dioxide 24 mEq/l mEq/l (22-31) Anion Gap 13 mEq/L mEq/L (8-16) BUN 55 mg/dL H mg/dL (7-23) Creatinine 1.4 mg/dL H mg/dL (0.7-1.3) Estimated GFR 51 Glucose 98 mg/dL mg/dL (70-100) Calcium 8.4 mg/dL L mg/dL (8.5-10.4) Troponin I 0.023 ng/mL ng/mL (0.000-0.034) NT-Pro-B Natriuret Pep 2470 pg/mL H pg/mL (0-125) Departure - Departure Disposition: [facility] In[facility] Acute Clinical Impression: Renal insufficiency CHF (congestive heart failure) Qualifiers: Heart failure type: other Qualified Code(s): I50.9 - Heart failure, unspecified Leukocytosis Qualifiers: Leukocytosis type: other Qualified Code(s): D72.828 - Other elevated white blood cell count Condition: Fair Report Scribed for: Leon Trevino Report Scribed by: Steph Brower Date of Report: 08/01/17 Time of Report: 11:42
--- NOTE | 2017-08-01 11:15 | ASMTCMCOM ---
CM Note CM Note Notes: Patient admission noted. Please see previous CM notes from recent ER visits in May and June of this year Date Signed: 08/01/2017 11:14 AM Electronically Signed By:Nicolette Terrazas RN
[2017-08-01] MEDS ORDERED: ONDANSETRON DISINTEGRATING 4 MG TAB PO PRN (12:19)
[2017-08-01] MEDS ORDERED: ONDANSETRON 4 MG/2 ML VIAL IVP PRN (12:19)
[2017-08-01] MEDS: PANTOPRAZOLE SODIUM 40 MG VIAL IVP SCH ×2 (13:00→20:35)
[2017-08-01] MEDS: NICOTINE 21 MG/24 HR PATCH TD SCH (13:00)
--- NOTE | 2017-08-01 13:00 | GHP ---
[f rep st] HISTORY AND PHYSICAL DATE OF ADMISSION: 08/01/2017 CHIEF COMPLAINT: Shortness of breath and chest pain. HISTORY OF PRESENT ILLNESS: The patient is a 67-year-old homeless man who comes in with increasing s hortness of breath and overall just does not feel good for the last 2 weeks. He does admit to occasi onal chest pain when he exerts himself. It does improve with rest. He denies any fevers, chills, na usea, vomiting, diarrhea. His urine has been normal. His BMs have been normal, but he does not look at his stool and cannot tell me whether he has had any black stools or bloody stools. He has been i n-and-out of the ER several times over the last 2 weeks, complaining of similar symptoms at which [facility] his hemoglobin has dropped from 12.3 on July 06 down to 6.8 today. I has been a gradual decl ine over that time period. Currently, he denies any pain. He does take occasional ibuprofen when he needs it, has not had any r ecently. He has a history of COPD and initially thought this was all from his COPD exacerbation. He continues to smoke a pack a day, but denies any alcohol use. REVIEW OF SYSTEMS: A comprehensive review of systems was done with pertinent positives present in HP I. PAST MEDICAL HISTORY: 1. COPD with ongoing tobacco use. 2. Hypertension. 3. History of chronic back pain. 4. History of hepatitis B and C with normal LFTs done last week. 5. History of bipolar disease, currently not on treatment. FAMILY HISTORY: Parents are . SOCIAL HISTORY: He is homeless. He smokes a pack a day. No alcohol use and never has been an alcoh olic. He does smoke marijuana frequently. MEDICATIONS: He currently is taking no medications, although he does have some prednisone and an inh aler listed that he received at recent ER visits. It is unclear if he actually filled these or not. PHYSICAL EXAMINATION: VITAL SIGNS: He is afebrile. Heart rate is 87, blood pressure 100/57, respir ations 21, he is 96% on room air. GENERAL: He is a thin 67-year-old in no obvious distress. He is alert. HEENT: Pupils are equal. Extraocular movements intact. Mucous membranes are moist. Oropha rynx is clear. NECK: Supple. No adenopathy. HEART: Regular. No murmur. LUNGS: Diminished bila terally. No rales or wheezing. ABDOMEN: Soft. He does have some mild tenderness in the epigastric area. No lower quadrant tenderness. EXTREMITIES: No clubbing, cyanosis, or edema. MUSCULOSKELETA L: No joint effusions or deformities. NEUROLOGIC: His speech is fluent. He moves all 4 extremitie s. SKIN: No rash. PSYCHIATRIC: Mood, flat affect but appropriate. LABORATORY/IMAGING: CBC shows white count 16.6, hemoglobin 6.8, hematocrit of 21.4, and a platelet c ount of 370. Coagulation normal. Electrolytes are normal, BUN 55 with a creatinine of 1.4. LFTs do ne a week ago are all within normal limits. Troponins have been negative. EKG personally reviewed and interpreted shows sinus rhythm. Chest x-ray personally reviewed and interpreted shows no pneumonia, nothing acute. ASSESSMENT/PLAN: 67-year-old presents with increasing shortness of breath and exertional chest pain for the past 2 weeks with a notable new anemia of a hemoglobin of 6.8. I suspect that his anemia is likely contributing to his current symptoms. 1. Shortness of breath, chest pain. Likely multifactorial, but most this most associated with anemi a. His hemoglobin has dropped significantly over the past 2 weeks, which would explain his symptoms. He is not microcytic, but does have some abnormal red cells. Will check ferritin, TIBC, reticulocy te count, LDH, and vitamin B12 to look for other signs, but I suspect this is more likely a slow blee d for which he has equilibrated with his heart rate and blood pressure. Plan, admit to the hospital. Place on proton pump inhibitor. Check labs, including coagulation. Consult Gastroenterology for p ossible upper and lower endoscopy. Of note, he has never had a colonoscopy, nor an upper endoscopy i n his lifetime. 2. Leukocytosis. He has been in the emergency room several times and has received some steroids. I t is unclear if he is taking the prednisone, but this would explain that, as well as the stress of hi s anemia. We will continue to follow. No active infection noted. 3. History of chronic obstructive pulmonary disease with ongoing tobacco use. We will place him on DuoNeb nebs and Proventil as needed. 4. History of hypertension. His blood pressure is currently low likely from the anemia. We will fo llow. 5. History of hepatitis B and C. Will recheck his LFTs and his Pro time, although his LFTs were nor mal a week ago. 6. History of bipolar disease. The patient is currently not on medication treatment. 7. Deep vein thrombosis prophylaxis. We will place him on sequential compression devices. /[id number]/MODL
[2017-08-01 14:41] LABS: INR 1.15 (0.83-1.16); PROTIME(PATIENT) 14.9 SEC (12.0-15.0)
[2017-08-01] MEDS: IPRATROPIUM/ALBUTEROL 3 ML DEYVIAL IH SCH ×2 (16:37→21:33)
--- NOTE | 2017-08-01 20:47 | GCON ---
[f rep st] CONSULTATION REFERRING PHYSICIAN: Ethel Davis MD CHIEF COMPLAINT: A 67-year-old gentleman with anemia. HISTORY OF PRESENT ILLNESS: This 67-year-old gentleman is homeless. He presented to the hospital wi th increasing shortness of breath. He reports that he has not been feeling well for the last 2 weeks . He was having some occasional chest pain with exertion. He had no fevers or chills. No nausea, v omiting, diarrhea. He denied any black or tarry stool or blood per rectum. Reports his vomit as carmelina ng normal. He has been to the emergency room several times over the last several weeks. He was note d have a drop in hemoglobin, 12.3 in June to 6.8 today. He has no prior history of GI bleeding. Does take occasional Motrin and does have a history of COPD. He smokes a pack of cigarettes a day. No significant alcohol use. He has no prior history of GI bleeding, and he has never had a previous endoscopy or colonoscopy. On presentation, his hemoglobin was 6.8 with a hematocrit of 21.4. MCV was normal at 82.6. PT was n ormal at 14.9, INR of 1.15, PTT of 23.2. Did have an elevated BUN of 55 with a creatinine 1.4. Iron studies do reveal a low iron of 10.1 with a normal TIBC of 420. Low iron saturation. Liver functio n tests: Mild elevation of ALT of 74 and AST of 59. PAST MEDICAL HISTORY: Remarkable for COPD, hypertension, chronic back pain, history of hepatitis B a nd C, history of bipolar disorder. FAMILY HISTORY: Negative as it pertains to chief complaint. SOCIAL HISTORY: He is homeless. Does smoke. No significant alcohol. Does smoke marijuana. MEDICATIONS: He was taking no medications prior to admission. ALLERGIES: No known drug allergies. PHYSICAL EXAM: VITAL SIGNS: 100/57, respiratory rate 21, 96% sat on room air, pulse of 87. GENERAL : Patient in no acute distress. HEENT: Normocephalic, atraumatic. EOMI. NECK: Supple. No cervi bouchra adenopathy. No thyromegaly. LUNGS: Clear. CARDIAC: Normal S1, S2, without murmur. ABDOMEN: Soft, benign. No hepatosplenomegaly. Nontender. EXTREMITIES: Without clubbing, cyanosis, edema. NEURO: Nonfocal. SKIN: Warm and dry. PSYCH: Affect is normal. Alert and oriented x3. LABORATORY DATA: H pylori IgG antibody was negative. Serum chemistries: Serum sodium 143, potassiu m 4.6, chloride 106, CO2 of 24, BUN 55, creatinine 1.4. PT of 14.9, INR of 1.15, PTT of 23.2. White count of 16.59, hemoglobin 6.8, and hematocrit is 21.4. IMPRESSION: A 67-year-old male with shortness of breath and anemia. Anemia is a normocytic anemia, however, with abnormal iron studies. Probably consistent with anemia of chronic disease. He has no particular gastrointestinal symptoms. Has reported in the past some upper abdominal discomfort. RECOMMENDATIONS: Hospitalization and proceed with diagnostic endoscopy and colonoscopy. Rule out si gnificant GI source for bleeding. Will follow with you. /[id number]/MODL
[2017-08-02 03:05] LABS: PLATELET COUNT 285 10^3/uL (150-400)
[2017-08-02] MEDS: IPRATROPIUM/ALBUTEROL 3 ML DEYVIAL IH SCH ×4 (05:59→21:00)
[2017-08-02] MEDS: ACETAMINOPHEN 325 MG TAB PO PRN ×3 (06:31→20:44)
--- NOTE | 2017-08-02 09:40 | PDPROPOC ---
Sedation Plan of Care Sedation Plan of Care: vital signs stable, mental status noted, patient educated of risks, benefits, alternatives, patient can tolerate sedation ASA Classification: ASA 2 Planned drugs: fentanyl, midazolam Mallampati Score: Class 2 Mallampati Reference Image: Patient passed 3-3-2 rule?: Yes
[2017-08-02] MEDS ORDERED: MIDAZOLAM 2 MG/2 ML VIAL ONE (09:43)
[2017-08-02] MEDS ORDERED: fentaNYL 100 MCG/2 ML INJ ONE (09:44)
[2017-08-02] MEDS ORDERED: MIDAZOLAM 2 MG/2 ML VIAL IVP ONE (10:06)
[2017-08-02] MEDS ORDERED: fentaNYL 100 MCG/2 ML INJ IVP ONE (10:07)
--- NOTE | 2017-08-02 10:45 | GIREPORT ---
[facility] - Endoscopy Department Patient Name: Tom Day Procedure Date: 08/02/2017 9:42 AM Patient Type: Inpatient Attending MD/ ER Physician: Octavio Celeste MD Procedure: Upper GI endoscopy Indications: Epigastric abdominal pain, Unexplained iron deficiency anemia, Function al Dyspepsia Providers: Octavio Celeste MD Medicines: Fentanyl 125 micrograms IV, Midazolam 5 mg IV Complications: No immediate complications. Description of Procedure: After obtaining informed consent, the endoscope was passed under direct vision. Throughout the procedure, the patient's blood pressure, pulse, and oxygen saturations were monitored continuously. The Endoscope was intro duced through the mouth, and advanced to the second part of duodenum. [facility] GI endoscopy was accomplished without difficulty. The patient tolerated th e procedure well. Findings: Non-severe esophagitis with no bleeding was found in the lower third of the esophagus. Biopsies were taken with a cold forceps for histology. LA Grade A (one or more mucosal breaks less than 5 mm, not extending be tween tops of 2 mucosal folds) esophagitis with no bleeding was found 35 cm f rom the incisors. With thickened folds at the GEJ. Biopsies were taken with a cold forceps for histology at GEJ.. A medium-sized hiatal hernia was present. The entire examined stomach was normal. Biopsies were taken with a cold forceps for histology. The examined duodenum was normal. Estimated Blood Loss: Estimated blood loss: none. Post Op Diagnosis: - Non-severe reflux esophagitis. Biopsied. - LA Grade A reflux esophagitis with thickened folds at GI junction. Biopsied. - Medium-sized hiatal hernia. - Normal stomach. Biopsied. - Normal examined duodenum. Recommendation: - Follow an antireflux regimen. - Use Protonix (pantoprazole) 40 mg PO daily. - Await pathology results. - Perform a colonoscopy tomorrow. - Thank you for allowing me to participate in the care of your patient. Attending Participation: I personally performed the entire procedure. Octavio Celeste MD Octavio Celeste MD 08/02/2017 10:45:00 AM This report has been signed electronicallyStsarwat Celeste MD Number of Addenda: 0 Note Initiated On: 08/02/2017 9:42 AM [email or web address]}
[2017-08-02] MEDS: PANTOPRAZOLE SODIUM 40 MG VIAL IVP SCH ×2 (11:35→20:45)
[2017-08-02] MEDS: NICOTINE 21 MG/24 HR PATCH TD SCH (11:55)
--- NOTE | 2017-08-02 14:07 | ASMTCMCOM ---
CM Note CM Note Notes: 08/02/2017 Case Management Note Discussed pt during rounds this morning. Met w/ pt to discuss discharge plan. Pt reports completing the coordinated entry process with the [facility]. Per pt he was assigned a reserved bedat the longterm. AT pt request, called Rob at the longterm to notify of hospital admission at [phone] ext [phone]. Left VM. Pt states that he is recieving housing assistance from [facility] and [facility] and the [employer]. [facility] and his [facility] Dr[facility] Kilpatrick at the [facility]. Pt eats his meals at the longterm or purchases food with his funds from [employer] (formerly [employer]). He travels by bus or walks to appointments. Medicare benefits cover medication costs. Pt is well connected to community resources. There are no further d/c case management needs identified. Case Management d/c poc: to [facility] reserved bed. Case Management to follow. Date Signed: 08/02/2017 02:06 PM Electronically Signed By:Myriam Milan RN
[2017-08-02] MEDS ORDERED: PEG 3350/NA SULF,BICARB,CL/KCL (GAVILYTE-G) 4000 ML BTL PO ONE (15:00)
--- NOTE | 2017-08-02 15:38 | HOSPPROG ---
Hospitalist Progress Note Assessment/Plan: # Anemia secondary to acute blood loss-patient with a drop in hemoglobin from 12 -> 6 at presentation in the past few months Status post 2 units packed red cells EGD today (review) showed esophagitis - blood pressure and heart rates currently stable - continue clear liquid diet - NPO after midnight - colonoscopy tomorrow - continue PPI # COPD- oxygen saturations 95% room air Chest x-ray(personally reviewed and interpreted) no acute infiltrates or edema - continue DuoNeb # prophylaxis contraindicated in setting of acute GI bleed # diet clear liquids # disposition-I expect potentially tomorrow if colonoscopy is normal and H&H remained stable I have discussed the case with Dr. Celeste from Gastroenterology will plan for colonoscopy tomorrow Subjective: Very hungry Objective: Vital Signs Temp Pulse Resp BP Pulse Ox 36.4 C 90 16 113/70 94 08/02/17 11:04 08/02/17 11:56 08/02/17 11:56 08/02/17 11:04 08/02/17 11:56 Laboratory Results 08/02/17 12:14 08/02/17 02:45 08/01/17 08/02/17 08/03/17 05:59 05:59 05:59 Intake Total 3700 Output Total 1075 350 Balance 2625 -350 PT 14.9 SEC (12.0-15.0) 08/01/17 12:24 INR 1.15 (0.83-1.16) 08/01/17 12:24 - Physical Exam Constitutional: no apparent distress Eyes: anicteric sclera Ears, Nose, Mouth, Throat: moist mucous membranes Cardiovascular: regular rate and rhythym Respiratory: no respiratory distress, no rales or rhonchi Gastrointestinal: normoactive bowel sounds Genitourinary: no bladder fullness Skin: warm Musculoskeletal: No asymmetric calves Neurologic: AAOx3 Psychiatric: interacting appropriately Lymph, Heme, Immunologic: no cervical LAD ICD10 Worksheet Patient Problems: Problems Problem Status Onset CHF (congestive heart failure) Acute Leukocytosis Acute Renal insufficiency Acute Bronchitis Acute COPD exacerbation Acute Chronic Disease Mgmt/Transitional Care Acute Right lower lobe pneumonia Acute
--- NOTE | 2017-08-02 17:14 | PDMN ---
Medical Necessity Medical necessity: change to IP; los>2mn for anemia r/t acute blood loss; requires IV PPI, colonoscopy 08/03; comorbid COPD, HTN, hx hep B,C, bipolar; per order and progress note 08/02/17
[2017-08-03] MEDS: ACETAMINOPHEN 325 MG TAB PO PRN ×2 (02:01→06:15)
[2017-08-03] MEDS: IPRATROPIUM/ALBUTEROL 3 ML DEYVIAL IH SCH ×2 (05:58→10:54)
[2017-08-03] MEDS: NICOTINE 21 MG/24 HR PATCH TD SCH (10:10)
[2017-08-03] MEDS: PANTOPRAZOLE SODIUM 40 MG VIAL IVP SCH (10:10)
[2017-08-03] MEDS ORDERED: LIDOCAINE 1% 2 ML INJ ID PRN (11:19)
[2017-08-03] MEDS ORDERED: LR 1,000 ML IV ONE (11:19)
[2017-08-03 11:32] VITALS: PULSE 74
[2017-08-03] MEDS ORDERED: IPRATROPIUM/ALBUTEROL 3 ML DEYVIAL IH PRN (12:02)
--- NOTE | 2017-08-03 12:09 | PDANEPAE ---
ANE History of Present Illness Bleeding ANE Past Medical History - Cardiovascular History Hx Hypertension: Yes - Pulmonary History Hx Oxygen in Use at Home: No Hx Sleep Apnea: No Sleep Apnea Screening Result - Last Documented: Negative - Endocrine History Hx Diabetes: No - Chronic Pain History Chronic Pain: No ANE Review of Systems Review of Systems: ANE Patient History - Allergies Allergies/Adverse Reactions: No Known Allergies Allergy (Verified 08/01/17 09:15) - Home Medications Home Medications: Acetaminophen [Tylenol 325mg (*)] 325 mg PO DAILY PRN 08/01/17 [Last Taken Unknown] Albuterol [Proventil Inhaler HFA (*)] 1 - 2 puffs IH Q4H PRN 08/01/17 [Last Taken Unknown] predniSONE [prednisone 20mg (RX)] 20 tab PO TID 08/01/17 [Last Taken 07/31/17] - NPO status NPO Since - Liquids (Date): 08/03/17 NPO Since - Liquids (Time): 23:30 NPO Since - Solids (Date): 08/02/17 NPO Since - Solids (Time): 08:00 - Smoking Hx Smoking Status: Heavy smoker ANE Labs/Vital Signs - Labs Result Diagrams: 08/02/17 12:14 08/02/17 02:45 - Vital Signs Blood Pressure: 143/88 Heart Rate: 74 Respiratory Rate: 18 O2 Sat (%): 92 Height: 171.45 cm Weight: 61.8 kg ANE Physical Exam - Airway Neck exam: FROM Mallampati Score: Class 2 Mouth exam: dentures - Pulmonary Pulmonary: no respiratory distress - Cardiovascular Cardiovascular: regular rate and rhythym - ASA Status ASA Status: III ANE Anesthesia Plan Anesthesia Plan: MAC
[2017-08-03] MEDS ORDERED: PROPOFOL/EMULSION 500 MG/50 ML BOTTLE IV ONE (12:12)
[2017-08-03] MEDS ORDERED: LIDOCAINE 2% 5 ML SDV ONE (12:12)
--- NOTE | 2017-08-03 12:42 | GIREPORT ---
[facility] - Endoscopy Department Patient Name: Tom Day Procedure Date: 08/03/2017 12:00 PM Patient Type: Inpatient Attending MD/ ER Physician: Octavio Celeste MD Procedure: Colonoscopy Indications: Unexplained iron deficiency anemia Providers: Octavio Celeste MD Medicines: Sedation Required Anesthesia Staff Assistance Complications: No immediate complications. Description of Procedure: After obtaining informed consent, the scope was passed under direct vis ion. Throughout the procedure, the patient's blood pressure, pulse, and oxyg en saturations were monitored continuously. The Colonoscope with irrigatio n channel was introduced through the anus and advanced to the cecum, identified by appendiceal orifice and ileocecal valve. The colonoscopy was performed without difficulty. The patient tolerated the procedure well. The quality of the bowel preparation was good. Anatomical landmarks were photographed. Findings: The entire examined colon appeared normal on direct and retroflexion vi ews. Estimated Blood Loss: Estimated blood loss: none. Post Op Diagnosis: - The entire examined colon is normal on direct and retroflexion views. - No specimens collected. Recommendation: - Resume regular diet. - Repeat colonoscopy in 10 years for screening purposes. - Thank you for allowing me to participate in the care of your patient. Attending Participation: I personally performed the entire procedure. Octavio Celeste MD Octavio Celeste MD 08/03/2017 12:41:41 PM This report has been signed electronicallyStsarwat Celeste MD Number of Addenda: 0 Note Initiated On: 08/03/2017 12:00 PM Total Procedure Duration Time 0 hours 14 minutes 18 seconds [email or web address]}
--- NOTE | 2017-08-03 12:50 | POSTANESTH ---
Post Anesthetic Evaluation Cardiovascular Status: Similar to Pre-Op Cond Respiratory Status: Similar to Pre-op Cond. Level of Consciousness/Mental Status: Can Participate in Eval Pain Control: Adequate, Prn Tx Ordered Nausea/Vomiting Control: Adequate, Prn Tx Ordered Complications Possibly Related to Anesthesia: None Noted
[2017-08-03 12:59] VITALS: TEMP 98.4
[2017-08-03 13:25] VITALS: BP 164/90; RESP 16; O2SAT 100
--- NOTE | 2017-08-03 14:09 | ASMTLACE ---
LACE Length of stay for Answers: 2 days current admission Acuity / Level of Answers: Yes Care: Did the patient have an inpatient admission? Comorbidities - select Answers: Chronic pulmonary disease all that apply Mild liver or renal disease # of Emergency department Answers: 5-8 visits in the last 6 months Social determinants Answers: Homelessness (street, usp) Score: 16 Date Signed: 08/03/2017 02:08 PM Electronically Signed By:JJ Gar
--- NOTE | 2017-08-03 17:07 | GDS ---
[f rep st] DISCHARGE SUMMARY DISCHARGE DIAGNOSES: Include: 1. Acute anemia secondary to blood loss. 2. Esophagitis. 3. Hiatal hernia. 4. Chronic obstructive lung disease. HISTORY OF PRESENT ILLNESS: A 67-year-old male who presents with complaints of weakness and shortnes s of breath. For details of the patient's initial presentation, please see the History and Physical dated 08/01/2017. CONSULTATIVE SERVICES: Gastroenterology. PROCEDURES: The patient underwent EGD and colonoscopy. Colonoscopy was normal. EGD found esophagit is and hiatal hernia. HOSPITAL COURSE: 1. Anemia. Patient had a profound drop of his hemoglobin from 12 to presentation in the 6's, suspec teena GI losses, as patient had no other complaints or symptoms consistent with other explanations. Jesús jacobo underwent prep and scoping, both EGD and colonoscopy. Esophagitis was identified. No other cl ear sources were noted on imaging. Patient received 2 units of packed red blood cells during this ho spital stay, being initiated on a daily proton pump inhibitor, as well as daily iron repletion. He h as been instructed to follow with his PCP in 1 month's time for his first post-disposition blood chec k. 2. COPD. Patient will be continued on his outpatient inhaled medications without change. DISCHARGE MEDICATIONS: Please reference med rec printed on 08/03/2017. PENDING STUDIES: None. FOLLOWUP APPOINTMENTS: Include with his primary care provider in 1 month's time for outpatient lab c heck of his red blood cell count. I spent greater than 30 minutes in the planning and coordination of this discharge. /[id number]/MODL
[2017-08-03] MEDS ORDERED: PANTOPRAZOLE SODIUM 40 MG TAB PO SCH (21:00)
== END 2017-08-03 17:21 | disposition home or self-care (01) | DRG 812 ==
LOC: EDUNIT# → F2W 11:55 → OBSVTOIN 08-02 16:31
PROVIDERS: ADMIT Internal Medicine; ATTEND Hospitalist
DX: D62 Acute posthemorrhagic anemia (principal); K20.9 Esophagitis, unspecified; J43.9 Emphysema, unspecified; I10 Essential (primary) hypertension; M54.2 Cervicalgia; G89.29 Other chronic pain; F11.20 Opioid dependence, uncomplicated; F31.9 Bipolar disorder, unspecified; K44.9 Diaphragmatic hernia without obstruction or gangrene; B19.10 Unspecified viral hepatitis B without hepatic coma; B19.20 Unspecified viral hepatitis C without hepatic coma; Z87.01 Personal history of pneumonia (recurrent); Z98.1 Arthrodesis status; Z59.0 Homelessness; Z87.891 Personal history of nicotine dependence
CPT/HCPCS: G0378; J2250; J2704; J3010; P9016; P9021

== ENCOUNTER 2017-08-03 20:32 | Emergency (ER) | payer OTHER ==
--- NOTE | 2017-08-03 20:34 | EDPHY ---
HPI/HX/ROS/PE/MDM Narrative: CHIEF COMPLAINT: Shortness of breath HPI: The patient is a 67 y/o male with a history of COPD and hypertension arriving via EMS for shortness of breath. He was discharged from this ED 2 days ago for a COPD exacerbation. He went to the homeless halfway today and felt short of breath, so he called 911. While en route to the hospital he refused an IV or fluids. No chest pain, abdominal pain, urinary or bowel complaints, paresthesias , numbness. Prior medical records reviewed including history and physical on 08/02/17. REVIEW OF SYSTEMS: Patient non-cooperative with exam. PMH: COPD, hypertension, chronic back pain, Hepatitis B and C, bipolar disorder SOCIAL HISTORY: Transient, single, smokes tobacco PHYSICAL EXAM: General: Patient is alert, in no acute distress. ENT: Eyes are normal to inspection. ENT inspection normal. Neck: Normal inspection. Full range of motion. Respiratory: No respiratory distress. Neuro: Oriented x3. Normal motor function. Normal sensory function. ED Course: 2200: Patient is refusing blood work, he will leave AMA. His vital signs are stable. MDM: This patient returns to the ED less than 12 hours after discharge from hospital. He refuses any blood draw or workup. He is not hypoxic and he wants to leave AMA. - Data Points Imaging Results: Imaging Impressions Chest X-Ray 08/03/17 20:34 Impression: 1. More apparent left lower lobe airspace opacity adjacent to a moderately- sized hiatal hernia may represent a developing pneumonia. 2. Small bilateral pleural effusions, new. 3. COPD/emphysema. Imaging: I viewed and interpreted images myself General Time Seen by Provider: 08/03/17 20:33 Initial Vital Signs: Initial Vital Signs Temperature (C) 36.8 C 08/03/17 21:16 Heart Rate 85 08/03/17 21:16 Respiratory Rate 20 08/03/17 21:16 Blood Pressure 175/93 H 08/03/17 21:16 O2 Sat (%) 100 08/03/17 21:16 O2 Delivery Mode Room Air Allergies/Adverse Reactions: No Known Allergies Allergy (Verified 08/04/17 04:54) Home Medications: Medication Instructions Recorded NK [No Known Home Meds] 08/04/17 Departure - Departure Disposition: Against Medical Advice Clinical Impression: Shortness of breath Condition: Fair Instructions: Shortness of Breath (ED) Additional Instructions: Follow-up with your primary doctor within 72 hours. Return to the Emergency Department for fever, chest pain, shortness of breath, increasing pain or other worsening of condition. Referrals: [facility],. [Clinic] - As per Instructions Report Scribed for: Catrachito Chicas Report Scribed by: Adriana Bass Date of Report: 08/03/17 Time of Report: 22:33 Physician Review and Approval Statement: Portions of this note were transcribed by an ED scribe. I personally performed the history, physical exam, and medical decision making; and confirm the accuracy of the information in the transcribed note.
[2017-08-03 21:18] VITALS: TEMP 98.2
[2017-08-03 22:21] VITALS: BP 169/85; PULSE 90; RESP 18; O2SAT 94
== END 2017-08-03 22:20 | disposition left against medical advice (07) ==
LOC: EDUNIT#
DX: R06.02 Shortness of breath (principal); J44.9 Chronic obstructive pulmonary disease, unspecified; I10 Essential (primary) hypertension; F17.200 Nicotine dependence, unspecified, uncomplicated

== ENCOUNTER 2017-08-04 04:39 | Emergency (ER) | payer OTHER ==
[2017-08-04] MEDS ORDERED: IPRATROPIUM/ALBUTEROL 3 ML DEYVIAL IH ONE (04:43)
[2017-08-04 04:54] VITALS: TEMP 98.2
[2017-08-04] MEDS ORDERED: ALBUTEROL INH PREPACK MDI TAKEHOME ONE (05:23)
--- NOTE | 2017-08-04 05:27 | EDPHY ---
H & P Stated Complaint: SOB Time Seen by Provider: 08/04/17 04:41 HPI/ROS: Chief Complaint: Short of breath HPI: 67-year-old homeless male with a history of COPD coming from the long-term complaining of shortness of breath. Patient was admitted and discharged yesterday afternoon after an episode of weakness. He is found to be anemic with gastritis. He received a blood transfusion at that time. Patient returned yesterday evening at 8 o'clock in the evening with complaints of shortness of breath. At that time he had clear lung sounds. He was refusing IV or any other treatments at that time. Chest x-ray at that time showed a possible increasing left lower lobe infiltrate but no other significance. Patient again was complaining of difficulty breathing this morning. He does not have his albuterol inhaler. Denies any cough. No fevers or chills. No nausea or vomiting. No chest pain. ROS: 10 point Review of Systems is negative except as noted in the HPI. PMH: COPD, anemia, gastritis Social History: Positive smoking, denies alcohol, no recreational drug use Family History: non-contributory Physical Exam: Gen: Awake, Alert, No Distress HEENT: Nose: no rhinorrhea Eyes: PERRLA, EOMI Mouth: Moist mucosa Neck: Supple, no JVD Chest: nontender, diffusely diminished lung sounds, no focal infiltrates Heart: S1, S2 normal, no murmur Abd: Soft, non-tender, no guarding Back: no CVA tenderness, no midline tenderness Ext: no edema, non-tender Skin: no rash Neuro: CN II-XII intact, Sensation grossly intact, Strength 5/5 in bilateral upper and lower extremities - Personal History Current Tetanus/Diphtheria Vaccine: Yes Tetanus Vaccine Date: < 10 years - Medical/Surgical History Hx Asthma: Yes Hx Chronic Respiratory Disease: Yes Hx Diabetes: No Hx Cardiac Disease: No Hx Renal Disease: No Hx Cirrhosis: No Hx Alcoholism: No Hx HIV/AIDS: No Hx Splenectomy or Spleen Trauma: No Other PMH: Emphysema, hypertension, Chronic neck pain, previous cervical fusion , lumbar fusion, KNEE, HEP B AND C - Social History Smoking Status: Heavy smoker Constitutional: Initial Vital Signs Temperature (C) 36.8 C 08/04/17 04:53 Heart Rate 80 08/04/17 04:53 Respiratory Rate 18 08/04/17 04:53 Blood Pressure 180/100 H 08/04/17 04:53 O2 Sat (%) 98 08/04/17 04:53 O2 Delivery Mode Room Air Allergies/Adverse Reactions: No Known Allergies Allergy (Verified 08/04/17 04:54) Home Medications: Medication Instructions Recorded Acetaminophen [Tylenol 325mg (*)] 325 mg PO DAILY PRN 08/01/17 Albuterol [Proventil Inhaler HFA 1 - 2 puffs IH Q4H PRN 08/01/17 (*)] Ferrous Sulfate [Iron] 325 mg PO DAILY #30 tablet 08/03/17 Pantoprazole Sodium 40 mg PO DAILY #30 tablet. 08/03/17 Medical Decision Making ED Course/Re-evaluation: Patient arrived with an oxygen saturation of 92% on room air. He is given a DuoNeb. His lung sounds are improved. He is satting 97% on room air while sleeping. Will give him a albuterol MDI with spacer. He will follow up with [facility] for any concerns. - Data Points Medications Given: Discontinued Medications Albuterol/Ipratropium (Duoneb) 3 ml IH EDNOW ONE Stop: 08/04/17 04:44 Last Admin: 08/04/17 04:53 Dose: 3 ml Departure - Departure Disposition: Home, Routine, Self-Care Clinical Impression: COPD exacerbation Condition: Good Instructions: COPD (Chronic Obstructive Pulmonary Disease) (ED) Additional Instructions: May use your albuterol inhaler 1-2 puffs every 2-4 hours as needed for cough or wheeze. Follow up with [facility] in 2-3 days for further evaluation. Referrals: [facility],. [Clinic] - As per Instructions
[2017-08-04 05:49] VITALS: BP 160/76; PULSE 778; RESP 16; O2SAT 97
== END 2017-08-04 05:47 | disposition home or self-care (01) ==
LOC: EDUNIT#
DX: J44.1 Chronic obstructive pulmonary disease with (acute) exacerbation (principal); I10 Essential (primary) hypertension; F17.200 Nicotine dependence, unspecified, uncomplicated

== ENCOUNTER 2017-08-04 09:22 | Inpatient (IN) | payer OTHER ==
[2017-08-04] MEDS ORDERED: IPRATROPIUM/ALBUTEROL 3 ML DEYVIAL IH ONE (09:40)
[2017-08-04] MEDS ORDERED: PANTOPRAZOLE SODIUM 40 MG VIAL IVP ONE (09:41)
--- NOTE | 2017-08-04 09:45 | EDPHY ---
H & P Time Seen by Provider: 08/04/17 09:25 HPI/ROS: CHIEF COMPLAINT: Shortness of breath HISTORY OF PRESENT ILLNESS: 67-year-old male with COPD presents with shortness of breath. This is his 8th emergency department visit this month. He has been seen multiple times for shortness of breath. He was admitted 2 days ago for shortness of breath and was diagnosed with severe anemia, with a hemoglobin of 8. EGD revealed esophagitis. He was placed on a PPI and discharged yesterday. He was seen here early this morning for shortness of breath, given a nebulized breathing treatment and was sent home. He refused blood tests or further evaluation during that ED visit. His breathing felt better for a while, but he called 911 just prior to arrival because of increasing shortness of breath. Associated with a moist cough and generalized weakness, no known fever. He has been prescribed inhalers and Protonix, but has not filled these medications. He is currently homeless. No black stools or bloody stools. REVIEW OF SYSTEMS: Constitutional: No fever, no chills Eyes: No visual changes ENT: No sore throat Cardiac: No chest pain Gastrointestinal: no vomiting, upper abdominal discomfort Genitourinary: No hematuria, no dysuria Musculoskeletal: No leg pain or swelling Skin: No rash Neurological: No headache Psychiatric: No depression Past Medical/Surgical History: COPD Esophagitis Social History: Homeless Smoking Status: Heavy smoker Physical Exam: General Appearance: Drowsy, answers questions appropriately Eyes: Pupils equal and round, no conjunctival pallor or injection ENT, Mouth: Mucous membranes moist Neck: Normal inspection Respiratory: Diffuse expiratory wheezing Cardiovascular: Regular rate and rhythm Gastrointestinal: Abdomen is soft, mild right upper quadrant tenderness Neurological: Drowsy, nonfocal exam Skin: Warm and dry Extremities: Normal inspection Psychiatric: Flat affect Constitutional: Initial Vital Signs Temperature (C) 36.5 C 08/04/17 09:34 Respiratory Rate 20 08/04/17 09:34 Blood Pressure 168/100 H 08/04/17 09:34 O2 Delivery Mode Room Air Allergies/Adverse Reactions: No Known Allergies Allergy (Verified 08/04/17 04:54) Home Medications: Medication Instructions Recorded Budesonide/Formoterol Fumarate 1 puffs IH BID 08/04/17 [Symbicort 80-4.5 Mcg Inhaler] Ferrous Sulfate [Ferrous Sulf 325 325 mg PO DAILY 08/04/17 MG (*)] Pantoprazole Sodium [Protonix 40mg 40 mg PO DAILY 08/04/17 (*)] Medical Decision Making - Diagnostics EKG Interpretation: EKG interpreted by me reveals sinus rhythm, rate 80, PAC and PVC present. Interpretation borderline EKG. Imaging Results: Chest x-ray independently reviewed by me reveals no acute infiltrate. ED Course/Re-evaluation: This patient presents with shortness of breath and bronchospasm. Albuterol neb per EMS with some relief in shortness of breath. He continues to have diffuse expiratory wheezing. A DuoNeb was given and Solu-Medrol 125 mg IV. Chest x-ray reveals no evidence of pneumonia. He continues to be borderline hypoxic, with an oxygen saturation of 90% on room air. 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 He is clearly not thriving and will need to be admitted for further treatment of COPD exacerbation. Hematocrit is 31 today; no evidence of ongoing hemorrhage. Protonix 40 mg IV given for recent diagnosis of esophagitis. Hopefully, case management will be able to assist him in finding a suitable and safe place to live. The hospitalist service was consulted for admission. Differential Diagnosis: Differential diagnosis includes does not limited to respiratory failure, pulmonary edema, empyema, pneumonia, acute coronary syndrome, severe anemia. - Data Points Laboratory Results: Laboratory Results 08/04/17 10:15 08/04/17 10:15 Medications Given: Acetaminophen (Tylenol) 650 mg PO Q4HRS PRN PRN Reason: Pain, Mild/Fever, Can Take PO Stop: 01/31/18 14:28 Last Admin: 08/04/17 21:25 Dose: 650 mg Albuterol/Ipratropium (Duoneb) 3 ml IH QID JI Stop: 01/31/18 15:59 Last Admin: 08/05/17 05:16 Dose: 3 ml Budesonide/Formoterol Fumarate (Symbicort 80-4.5 Mcg Inhaler) 1 puffs IH BID JI Stop: 01/31/18 14:59 Last Admin: 08/04/17 21:10 Dose: Not Given Ferrous Fumarate/Vit C/Docusate Sod (Zbigniew-Sequels 65 Mg) 1 each PO BID JI Stop: 01/31/18 14:44 Last Admin: 08/04/17 21:25 Dose: 1 each Nicotine (Nicoderm Cq) 21 mg TD DAILY JI Stop: 01/31/18 15:14 Last Admin: 08/04/17 16:40 Dose: Not Given Pantoprazole Sodium (Protonix) 40 mg PO DAILY JI Stop: 01/31/18 14:44 Last Admin: 08/04/17 15:40 Dose: Not Given Prednisone (Prednisone) 60 mg PO DAILY [facility] Stop: 01/31/18 14:59 Last Admin: 08/04/17 16:39 Dose: 60 mg Discontinued Medications Albuterol/Ipratropium (Duoneb) 3 ml IH EDNOW ONE Stop: 08/04/17 09:41 Last Admin: 08/04/17 10:05 Dose: 3 ml Pantoprazole Sodium (Protonix) 40 mg IVP EDNOW ONE Stop: 08/04/17 09:42 Last Admin: 08/04/17 10:41 Dose: 40 mg Departure - Departure Disposition: [facility] Acute Clinical Impression: Chronic obstructive pulmonary disease with acute exacerbation Condition: Fair
--- NOTE | 2017-08-04 10:07 | CPEKG ---
Heart Rate: 80 RR Interval: 750 P-R Interval: 124 QRSD Interval: 106 QT Interval: 412 QTC Interval: 476 P [place]: 72 QRS [place]: 19 T Wave [place]: 69 EKG Severity - ABNORMAL ECG - EKG Impression: SINUS RHYTHM Electronically Signed By: Manuela Birch 04-Aug-2017 15:12:38
[2017-08-04 10:26] LABS: PLATELET COUNT 343 10^3/uL (150-400)
--- NOTE | 2017-08-04 13:25 | ASMTCMCOM ---
CM Note CM Note Notes: Pt presented to the Emergency Department today with worsening shortness of breath. Spoke with TETO López, asked to see pt. Per Maribel, pt denies having medications, a primary care doctor or follow up information. Met with pt. Pt states he has the last set of medications we provided "in his stuff." The pt says he has been staying at the [facility] and uses the Coordinated Entry process to get in each night. The pt says he is still in contact with [facility] and the 's association. He states he has been seeking assistance with snf housing. Pt says he has a primary care physician that he never sees at the [facility] - Dr. Reynolds. His psychiatrist is still Dr. Kilpatrick at the [facility] (but the pt says he hasn't seen him in a very long time). The pt says he gets his meals at the [facility] and has SSDI funds. The pt uses the bus or walks to his appointments. Per prior CM notes, the pt was scheduled to follow up with Dr. Benitez at [facility]. The pt denies having a doctor at [facility] and says he needs some help re-establishing care with them. The pt has Medicare and prescription benefits. Per prior CM notes, pt is not eligible for the medication assistance program (MAP) should he need prescriptions on discharge. Pt requesting a warm blanket and some food. Warm blanket obtained and placed under pt's cooler blankets. TETO López updated. Pt to likely be admitted. CM will cont to follow for potential needs. Current Discharge Plan: To be determined Date Signed: 08/04/2017 01:24 PM Electronically Signed By:Marilyn Villa RN
[2017-08-04] MEDS ORDERED: ALBUTEROL 3 ML DEYVIAL IH PRN (14:29)
[2017-08-04] MEDS ORDERED: ONDANSETRON DISINTEGRATING 4 MG TAB PO PRN (14:29)
[2017-08-04] MEDS ORDERED: ONDANSETRON 4 MG/2 ML VIAL IVP PRN (14:29)
--- NOTE | 2017-08-04 15:36 | GHP ---
[f rep st] HISTORY AND PHYSICAL DATE OF ADMISSION: 08/04/2017 CHIEF COMPLAINT: Shortness of breath. HISTORY OF PRESENT ILLNESS: A 67-year-old male with a history of COPD and recent hospitalization for shortness of breath and anemia. Patient was discharged yesterday after thorough workup for anemia in cluding EGD, colonoscopy. Patient was discharged on a proton pump inhibitor and iron supplementation , on room air without respiratory complaints. Patient returned to the senior care yesterday evening, and came back to the emergency department today complaining of shortness of breath, new cough, subjectiv e fevers, chills. Patient reports not getting much rest overnight secondary to his disposition to [facility] and returning to the emergency department. Reports that the cough is new and productive of discolored sputum, and that his severity of shortness of breath is markedly worsened from his typica l baseline. Patient, overall describes just simply not feeling well. Denies any vomiting. Reports mild nausea. Denies diarrhea. Denies dysuria. Patient reports weakness overall, and is feeling romeo y hungry. PAST MEDICAL HISTORY: 1. COPD. 2. Tobacco dependence. 3. Hypertension. 4. Chronic back pain. 5. Hepatitis B and C. 6. Bipolar disease, not on active treatment. 7. Iron-deficiency anemia, presumed source esophagitis. FAMILY HISTORY: Both parents are . SOCIAL HISTORY: Patient is homeless, lives at the senior care. Smokes a pack of cigarettes a day. Robert es alcohol or illicit drugs. Reports frequent marijuana use. REVIEW OF SYSTEMS: A 10-point review of systems is negative with the exception of that reported in t he HPI. PHYSICAL EXAMINATION: VITAL SIGNS: Blood pressure 163/85, heart rate 80, respiratory rate 18, satti ng 95% on 2 L, 36.5. GENERAL: This is a thin, disheveled-appearing middle-aged male in no acute dis tress. HEENT: Notable for dry mucous membranes. Eye exam is negative for any icterus. CARDIAC: P atient has regular rate and rhythm. PULMONARY: Patient is diffusely wheezy bilaterally. No rhonchi or rales are appreciated. GASTROINTESTINAL: Positive bowel sounds. Abdomen is soft and nontender. MUSCULOSKELETAL: Negative for any lower extremity edema. SKIN: Negative for any rashes. NEUROLO GIC: Patient is alert and oriented x3. PSYCHIATRIC: He is cooperative on interview and examination . DATA: White count is 11.1, hemoglobin 10 from 8 last checked, platelet count of 343. Creatinine 0.7 , BUN 15, down from 34. Chest x-ray, which I personally reviewed and interpreted, shows no acute infiltrates or edema. ASSESSMENT AND PLAN: This is a 67-year-old male presenting with shortness of breath. 1. Acute chronic obstructive pulmonary disease exacerbation. Seems like a rapid turnaround from disc harge 24 hours ago to re-presenting with new unassociated complaint. However, the patient is coughin g on my examination and is wheezy. We will send a respiratory pathogen PCR. Suspicion for a bacteri al pathogen is low based on his chest x-ray. We will initiate prednisone orally, inhaled beta agonis ts, and provide supportive care. Suspect this will be an observation stay if the patient responds we ll to the above therapies. 2. Iron-deficiency anemia. Patient will be continued on recent discharge medications of iron supple mentation and by mouth pantoprazole. 3. Tobacco abuse/dependence. We will provide the patient with a nicotine patch. 4. History of hypertension. Patient is not on medications chronically, but has elevated pressures i n the emergency department. We will monitor after he gets settled as the patient did have more jin l blood pressures during his previous hospital stay. Disinclined to initiate an antihypertensive at this time as the likely compliance with this medication is low and would not want to take the risk of dropping the patient's blood pressures. 5. Prophylaxis with enoxaparin. DIET: Regular. DISPOSITION: Less than 2 midnights if the patient responds appropriately to inhaled meds and support vira care. Discussed the case with the emergency room physician. Patient will be triaged to the [facility]-surgical floor for care. /[id number]/MODL
[2017-08-04] MEDS: FERRO-SEQUELS 65 MG TAB.ER PO SCH ×2 (15:37→21:25)
[2017-08-04] MEDS: PANTOPRAZOLE SODIUM 40 MG TAB PO SCH (15:40)
[2017-08-04] MEDS: IPRATROPIUM/ALBUTEROL 3 ML DEYVIAL IH SCH ×3 (15:50→21:07)
[2017-08-04] MEDS: BUDESONIDE/FORMOTEROL 80/4.5 60 PUFFS/MDI IH SCH ×2 (15:50→21:10)
[2017-08-04] MEDS: predniSONE 20 MG TAB PO SCH (16:39)
[2017-08-04] MEDS: NICOTINE 21 MG/24 HR PATCH TD SCH (16:40)
[2017-08-04] MEDS: ACETAMINOPHEN 325 MG TAB PO PRN (21:25)
[2017-08-05 04:24] LABS: PLATELET COUNT 316 10^3/uL (150-400)
[2017-08-05] MEDS: IPRATROPIUM/ALBUTEROL 3 ML DEYVIAL IH SCH ×4 (05:16→22:14)
[2017-08-05] MEDS ORDERED: IOPAMIDOL (ISOVUE 370) 100 ML BTL IV ONE (09:17)
[2017-08-05] MEDS: ENOXAPARIN 40 MG/0.4 ML SYR SC SCH ×2 (11:04→11:10)
[2017-08-05] MEDS: NICOTINE 21 MG/24 HR PATCH TD SCH (11:06)
[2017-08-05] MEDS: PANTOPRAZOLE SODIUM 40 MG TAB PO SCH (11:06)
[2017-08-05] MEDS: predniSONE 20 MG TAB PO SCH (11:06)
[2017-08-05] MEDS: FERRO-SEQUELS 65 MG TAB.ER PO SCH ×2 (11:06→19:38)
[2017-08-05] MEDS: BUDESONIDE/FORMOTEROL 80/4.5 60 PUFFS/MDI IH SCH ×2 (11:45→22:13)
[2017-08-05] MEDS ORDERED: AZITHROMYCIN 250 MG TAB PO ONE ×2 (13:55→16:15)
--- NOTE | 2017-08-05 17:01 | ASMTCMCOM ---
CM Note CM Note Notes: Discussed pt in rounds, admitted w/COPD exac. [facility] is [facility] Pt said that [facility] bed [facility] and will go there when he dc'd. Likely dc tomorrow, may need to go with O2. CM will follow. Date Signed: 08/05/2017 05:01 PM Electronically Signed By:Sera Franco RN
--- NOTE | 2017-08-05 19:08 | HOSPPROG ---
Hospitalist Progress Note Assessment/Plan: Assessment: 67-year-old male presents with acute COPD exacerbation Plan: 1. COPD exacerbation. Acute, new problem this provider, further workup indicated. Evidenced by diffuse expiratory wheezes and symptomatic shortness of breath, with extensive smoking history, sinus arrhythmia on EKG, personally interpreted -given elevated D-dimer, get CT angiogram to rule out pulmonary embolism as precipitating cause -continue prednisone, scheduled duo nebs, azithromycin -remains clinically on resolved today with ongoing expiratory wheezes and shortness of breath, requires additional 24 hr of scheduled nebulizer treatments -respiratory viral panel is currently negative 2. Acute atelectasis. Present on chest x-ray, personally interpreted, start incentive spirometer 3. Chronic anemia. Continue PPI and iron therapy, continue monitor hemoglobin level Diet. Regular Prophylaxis. High risk patient, Lovenox for Code. Full Disposition. Upgraded to inpatient admission status given that his anticipated length stay is greater than 48 hr for reasonable medical necessity including clinically on resolved COPD exacerbation requiring ongoing duo nebulizer treatments, ongoing work with therapy modalities. Subjective: Patient with ongoing shortness of breath with any activity Objective: Vital Signs Temp Pulse Resp BP Pulse Ox 36.7 C 94 18 149/81 H 94 08/05/17 16:00 08/05/17 17:04 08/05/17 17:04 08/05/17 16:00 08/05/17 17:04 Microbiology 08/04/17 15:40 Respiratory Panel (PCR) - Final Nasal, Sinus - Swab No Organism Detected Laboratory Results 08/05/17 03:09 08/04/17 08/05/17 08/06/17 05:59 05:59 05:59 Intake Total 1000 Output Total 725 300 Balance 275 -300 - Physical Exam Constitutional: no apparent distress, not in pain, chronically ill appearing, uncomfortable Cardiovascular: tachycardia (Min irregularity), No systolic murmur, No irregularly irregular, No edema Respiratory: reduced air movement (On expiratory bilateral), expiratory wheeze, No inspiratory crackles, No bronchial breath sounds, No respiratory distress Gastrointestinal: normoactive bowel sounds, soft, non-tender abdomen, no palpable masses Neurologic: AAOx3, sensation intact bilaterally, No weakness Psychiatric: not anxious, not encephalopathic, thought process linear, flat affect, No agitated ICD10 Worksheet Patient Problems: Problems Problem Status Onset COPD exacerbation Acute Bronchitis Acute Right lower lobe pneumonia Acute Chronic Disease Mgmt/Transitional Care Acute CHF (congestive heart failure) Acute Renal insufficiency Acute Leukocytosis Acute Chronic obstructive pulmonary disease with acute exacerbation Acute
[2017-08-05] MEDS: ACETAMINOPHEN 325 MG TAB PO PRN (19:38)
--- NOTE | 2017-08-05 19:58 | PDMN ---
Medical Necessity Medical necessity: C/M review: est. > 2 MN LOS forval and TX of acute and persistent COPD exacerbation, atelectasis, diffuse expiratory wheezes, symptomatic shortness of breath requiring ongoing scheduled Duonebs, oral azithromycin, oral prednisone, cardiac monitoring, pulse oximetry, supplemental O2, comorbid extensive smoking history, chronic anemia per 08/05/2017 Hospitalist progress note.
[2017-08-05] MEDS: LISINOPRIL 5 MG TAB PO SCH (19:59)
[2017-08-06] MEDS: BENZONATATE 100 MG CAP PO PRN ×2 (02:00→20:54)
[2017-08-06] MEDS: IPRATROPIUM/ALBUTEROL 3 ML DEYVIAL IH SCH ×4 (04:03→20:38)
[2017-08-06] MEDS: BUDESONIDE/FORMOTEROL 80/4.5 60 PUFFS/MDI IH SCH ×2 (04:04→20:37)
[2017-08-06] MEDS: ACETAMINOPHEN 325 MG TAB PO PRN ×2 (10:53→20:55)
[2017-08-06] MEDS: predniSONE 20 MG TAB PO SCH (10:54)
[2017-08-06] MEDS: LISINOPRIL 5 MG TAB PO SCH (10:54)
[2017-08-06] MEDS: FERRO-SEQUELS 65 MG TAB.ER PO SCH ×2 (10:54→20:54)
[2017-08-06] MEDS: AZITHROMYCIN 250 MG TAB PO SCH (10:54)
[2017-08-06] MEDS: PANTOPRAZOLE SODIUM 40 MG TAB PO SCH (10:54)
[2017-08-06] MEDS: ENOXAPARIN 40 MG/0.4 ML SYR SC SCH (10:55)
[2017-08-06] MEDS: NICOTINE 21 MG/24 HR PATCH TD SCH (10:55)
[2017-08-06] MEDS ORDERED: DICYCLOMINE 20 MG TAB PO PRN (15:19)
[2017-08-06] MEDS ORDERED: CALCIUM CARBONATE 500 MG CHEWABLE TAB PO PRN (15:19)
[2017-08-06 16:04] LABS: PLATELET COUNT 329 10^3/uL (150-400)
--- NOTE | 2017-08-06 17:41 | HOSPPROG ---
Hospitalist Progress Note Assessment/Plan: Assessment: 67-year-old male presents with acute COPD exacerbation c/b acute abdominal pain Plan: 1. COPD exacerbation. Acute, evidenced by diffuse expiratory wheezes and symptomatic shortness of breath, with extensive smoking history, sinus arrhythmia on tele w/ PVCs, personally interpreted -CTA w/o PE -continue prednisone, scheduled duo nebs, azithromycin -remains clinically on resolved today with ongoing shortness of breath, hypoxia (SpO2 88% at rest), requires additional 24 hr of scheduled nebulizer treatments -respiratory viral panel is currently negative -repeating CXR to ensure no development of basilar infiltrate given insp crackles 2. Acute atelectasis. Present on chest x-ray, cont to encourage IS and mobility 3. Chronic anemia. Continue PPI and iron therapy, continue monitor hemoglobin level 4. Acute abdominal pain. New problem, further w/u indicated. Hx of reflux esophagitis on 08/02/17 EGD and normal colonoscopy 08/03/17 (outside records by Dr. Celeste reviewed), no e/o melanotic stool -get CMP (liver panel), and, if abnl, will get RUQ US -re-evaluated patient at 5:45 p.m., and abd is benign, so will hold on additional imaging at this juncture, suspect that there may be some malingering/ secondary gain Diet. Regular Prophylaxis. High risk patient, Lovenox for Code. Full Disposition. ADD 08/07, pending improvement in SpO2 Subjective: short of breath, abd pain, moving bowels Objective: Vital Signs Temp Pulse Resp BP Pulse Ox 37.0 C 88 10 L 153/73 H 91 L 08/06/17 15:37 08/06/17 15:37 08/06/17 15:37 08/06/17 15:37 08/06/17 17:05 Laboratory Results 08/06/17 15:15 08/06/17 15:15 08/05/17 08/06/17 08/07/17 05:59 05:59 05:59 Intake Total 800 Output Total 600 Balance 200 - Pending Discharge Pending Discharge Within 24 Hours: Yes Pending Discharge Date: 08/07/17 Pending Discharge Time: 11:00 - Physical Exam Constitutional: no apparent distress, appears nourished, not in pain, No uncomfortable Cardiovascular: regular rate and rhythym, no murmur, rub, or gallop, No edema Respiratory: reduced air movement (on exp bilat), inspiratory crackles (bilat bases), No expiratory wheeze, No bronchial breath sounds, No respiratory distress Gastrointestinal: normoactive bowel sounds, soft, non-tender abdomen, no palpable masses, No guarding, No distension Skin: warm, normal color, No abrasion, No erythema Neurologic: AAOx3 Psychiatric: not anxious, not encephalopathic, flat affect, No agitated ICD10 Worksheet Patient Problems: Problems Problem Status Onset Chronic obstructive pulmonary disease with acute exacerbation Acute Bronchitis Acute CHF (congestive heart failure) Acute COPD exacerbation Acute Chronic Disease Mgmt/Transitional Care Acute Leukocytosis Acute Renal insufficiency Acute Right lower lobe pneumonia Acute
[2017-08-07] MEDS: ACETAMINOPHEN 325 MG TAB PO PRN (00:47)
[2017-08-07] MEDS: IPRATROPIUM/ALBUTEROL 3 ML DEYVIAL IH SCH ×4 (04:51→20:49)
[2017-08-07] MEDS: BUDESONIDE/FORMOTEROL 80/4.5 60 PUFFS/MDI IH SCH ×2 (08:01→20:48)
[2017-08-07] MEDS: ENOXAPARIN 40 MG/0.4 ML SYR SC SCH (08:20)
[2017-08-07] MEDS: AZITHROMYCIN 250 MG TAB PO SCH (08:21)
[2017-08-07] MEDS: NICOTINE 21 MG/24 HR PATCH TD SCH (08:21)
[2017-08-07] MEDS: PANTOPRAZOLE SODIUM 40 MG TAB PO SCH (08:21)
[2017-08-07] MEDS: LISINOPRIL 5 MG TAB PO SCH (08:21)
[2017-08-07] MEDS: FERRO-SEQUELS 65 MG TAB.ER PO SCH (08:21)
[2017-08-07] MEDS: predniSONE 20 MG TAB PO SCH (08:22)
--- NOTE | 2017-08-07 08:39 | PDHOMEO2F ---
Home Oxygen Face to Face Home Orders: I certify that a physician or a nurse practitioner or physician's advertising assistant manager has had a [id number] encounter with this patient on the date of this order due to the diagnosis listed, which relates to the primary reason the patient requires home oxygen. Alternative treatments have been tried, or considered, and deemed ineffective. It is anticipated that supplemental oxygen will result in improvement with treatment. Home oxygen qualifying diagnosis: COPD SpO2 on room air (%): 88 Frequency of home oxygen needed: continuous Home oxygen liters per minute: 2 Home oxygen delivery device: nasal cannula Concentrator: Yes E-tanks for mobility and back up: Yes If ordering portable O2, is the patient mobile in the home?: Yes I certify that, based on these findings, the home oxygen is medically necessary for this patient for the following length of time. Length of time home oxygen needed: 3 months
[2017-08-07] MEDS ORDERED: ALBUTEROL 60 PUFFS/8 GM MDI IH PRN (10:03)
[2017-08-07] MEDS ORDERED: ALBUTEROL 60 PUFFS/8 GM MDI IH SCH ×2 (10:20→12:29)
[2017-08-07] MEDS ORDERED: BUDESONIDE/FORMOTEROL 80/4.5 60 PUFFS/MDI IH SCH (10:30)
[2017-08-07] MEDS ORDERED: CEPACOL LOZENGE PO PRN (10:43)
[2017-08-07] MEDS ORDERED: NICOTINE POLACRILEX 2 MG GUM B PRN (10:43)
--- NOTE | 2017-08-07 12:07 | ASMTCMCOM ---
CM Note CM Note Notes: 08/07/2017 Case Management Note Met pt during rounds this morning. Confirmed with Rob [phone] ext [phone] that pt has a respite bed at the [facility] on a daily basis. Notified RT that O2 should be delivered to [facility] before 10 am or after 4:30 pm. Case Management available for further d/c needs. Date Signed: 08/07/2017 12:06 PM Electronically Signed By:Myriam Milan RN
[2017-08-07] MEDS ORDERED: TIOTROPIUM INHALER 18 MCG/DOSE 5 DOSE/MDI IH SCH ×2 (12:15)
--- NOTE | 2017-08-07 14:32 | ASMTCMCOM ---
CM Note CM Note Notes: 07/29/2017 Case Management Note In person visit from Germán Weems LCSW from the [place] [phone] (cell) [phone] (fax) Germán has an appointment to accompany pt to [facility] tomorrow at 1:30 pm for [employer] voucher application. Pt to stay at friend [facility] if d/c from the hospital today. Jalen lives at [address] [place] [address] in [place] and can be reached at [phone]. Germán Weems states that pt is MRSA positive but was uncertain of dates. Pt signed [facility] for [facility]. Case Management printed H & P, ED report, PT OT notes and med list at Germán's request. Gave hard copies to Germán. O2 has been delivered to pt room. There are no further case management d/c needs. Date Signed: 08/07/2017 02:31 PM Electronically Signed By:Myriam Milan RN
[2017-08-07 14:43] VITALS: BP 147/77; PULSE 87; RESP 15; TEMP 98.6; O2SAT 93
--- NOTE | 2017-08-07 15:57 | PDDCSUM ---
Discharge Summary Discharge Summary: DISCHARGE SUMMARY FOLLOW-UP ITEMS: Arrange outpatient pulmonary function test through [facility] DATE OF ADMISSION: 08/04/2017 DATE OF DISCHARGE: 08/07/2017 DISCHARGE DIAGNOSES: 1. Acute COPD exacerbation 2. Acute atelectasis 3. Chronic anemia 4. Acute abdominal pain CONSULTATIONS: None PROCEDURES / IMAGING: Chest x-ray demonstrating no focal infiltrates CHIEF COMPLAINT: Acute shortness of breath SUBJECTIVE: Patient continues to experience self-limited episodes of shortness of breath after he ambulates or smokes a cigarette PHYSICAL EXAM ON DISCHARGE: Systolic blood pressure is 88% on room air, systolic blood pressure 120-160, heart rate 70, lungs have some expiratory wheezes bilaterally, but they are fainter than they were previously, he has no bronchial breath sounds on expiration is no inspiratory crackles, his heart rhythm is regular comma his affect is flat, his lower extremities demonstrate no edema, his abdomen is benign to deep palpation with normal bowel sounds LABS ON DISCHARGE: Liver panel unremarkable, hemoglobin 9.2 creatinine 0.8, BUN 23, BNP 2060 HOSPITAL COURSE BY PROBLEM: 1. Acute COPD exacerbation. Evidenced by diffuse expiratory wheezes and symptomatic shortness of breath, with extensive smoking history, ongoing. The patient's expiratory wheezes were particularly worse in the morning hours, after ambulation, as well as after smoking cigarettes. We counseled the patient extensively regarding the need to stop smoking in order to effectively treat his COPD. The patient is amenable to smoking cessation and he wants to have a nicotine patch as well as ongoing outpatient counseling provided through the [facility]. The patient received scheduled duo nebulizer treatments as well as steroids, azithromycin, continuation of his long-acting beta agonist and inhaled corticosteroid. On the day of discharge, the patient did have some expiratory wheezes bilaterally, but the patient feels like his breathing is near his baseline and I believe that with ongoing use of Spiriva, Symbicort, as needed albuterol inhaler, and 1 subsequent day of prednisone with azithromycin Tessalon Perles as needed, the patient should be successful for outpatient management. The patient also continues to have an SpO2 of around 88%, and we have demonstrated that the patient does feel symptomatically short of breath when he is objectively hypoxic. Consequently, we worked diligently with respiratory therapy to secure authorization for outpatient supplemental oxygen, and the patient has set authorization prior to discharge. 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 2. Acute atelectasis. This was present on chest x-ray we encourage mobility and incentive spirometer. 3. Acute abdominal pain. Potentially secondary to reflux esophagitis versus malingering, the patient had a benign exam and normal lab values. Most recently had upper endoscopy which did demonstrate reflux esophagitis and he was continued on his proton pump inhibitor. 4. Chronic anemia. The patient has been continued on iron therapy as well as a proton pump inhibitor. DISCHARGE MEDICATIONS: Please see official discharge medication reconciliation sheet in chart , Symbicort, Spiriva, albuterol inhaler as needed, prednisone 60 mg x1 subsequent day, azithromycin 250 mg x1 subsequent day, as needed Claribel Enriquez. DISCHARGE INSTRUCTIONS: Please schedule follow-up at the [facility] within 1 week and arrange outpatient pulmonary function test. TIME SPENT: Greater than 30 minutes were spent on direct patient care, as well as discharge planning and preparation. Of note, the patient regularly experiences symptomatic shortness of breath after he smokes cigarettes or ambulates a significant amount. This has been successfully treated with nebulizer treatments as well as remaining on supplemental oxygen. If the patient does re-presented to the emergency department with symptomatic shortness of breath, I would recommend administering a nebulizer treatment, ensuring that he is staying on supplemental oxygen, and considering outpatient management supposed inpatient admission, as the patient has consistently demonstrated rapid improvement after receiving these treatment modalities.
--- NOTE | 2017-08-07 16:02 | ASMTLACE ---
CHERE Length of stay for Answers: 2 days current admission Comorbidities - select Answers: Chronic pulmonary disease all that apply # of Emergency department Answers: 12+ visits in the last 6 months Social determinants Answers: Homelessness (street, [facility]) Mental health diagnosis (anxiety, depression, pers onality disorders, etc.) Lack of community resources and/or lack of social support (no pcp, lives alone, transportation, maddie d) Score: 20 Date Signed: 08/07/2017 04:01 PM Electronically Signed By:Myriam Milan RN
== END 2017-08-07 20:30 | disposition home or self-care (01) | DRG 191 ==
LOC: EDUNIT# → INTOOBSV 12:11 → F2W 13:01 → OBSVTOIN 08-05 13:55
PROVIDERS: ADMIT Hospitalist; ATTEND Hospitalist
DX: J44.9 Chronic obstructive pulmonary disease, unspecified (principal); J98.11 Atelectasis; R10.9 Unspecified abdominal pain; D50.9 Iron deficiency anemia, unspecified; F17.210 Nicotine dependence, cigarettes, uncomplicated; I10 Essential (primary) hypertension; B19.10 Unspecified viral hepatitis B without hepatic coma; B19.20 Unspecified viral hepatitis C without hepatic coma; F31.9 Bipolar disorder, unspecified; Z59.0 Homelessness
CPT/HCPCS: 96374; 97161-GP; 97165-GO; G0378; G8978-GP-CI; G8979-GP-CI; G8980-GP-CI; G8987-GO-CI; G8988-GO-CI; G8989-GO-CI; J1650; J7512; Q9967

== ENCOUNTER 2017-08-14 08:43 | Emergency (ER) | payer OTHER ==
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
[2017-08-14] MEDS ORDERED: IPRATROPIUM/ALBUTEROL 3 ML DEYVIAL IH ONE (09:45)
[2017-08-14] MEDS ORDERED: predniSONE 20 MG TAB PO ONE (09:45)
[2017-08-14 10:46] VITALS: BP 139/84; PULSE 73; RESP 16; TEMP 98.1; O2SAT 95
== END 2017-08-14 10:47 | disposition home or self-care (01) ==
LOC: EDUNIT#
DX: Z76.0 Encounter for issue of repeat prescription (principal); I10 Essential (primary) hypertension; J45.909 Unspecified asthma, uncomplicated; F17.200 Nicotine dependence, unspecified, uncomplicated
CPT/HCPCS: 71046; 99284; J7512